=== PATIENT | female | born 1930 | race Caucasian/White ===

== ENCOUNTER 2016-04-23 21:26 | Emergency (ER) | payer MEDICARE ==
[2016-04-23] MEDS ORDERED: CloNIDine HCL 0.1 MG TABLET PO ONE (22:19)
[2016-04-23 23:04] LABS: eGFR (African) > 60; eGFR (Non-African) > 60
[2016-04-23 23:10] LABS: BASOPHILS % 0.5 (0.0-1.5); EOSINOPHILS % 3.2 % (0.0-6.8); LYMPHOCYTES # 1.2 # k/uL (0.6-4.0); MEAN CORPUSCULAR HEMOGLOBIN 29.6 pg (28.0-34.0); MONOCYTES # 0.3 # k/uL (0.0-0.9); MONOCYTES % 7.9 % (0.0-11.0); NEUTROPHILS # 2.2 # k/uL (1.4-7.7)
[2016-04-24] MEDS ORDERED: CLOPIDOGREL BISULFATE 75 MG TABLET PO ONE ×3 (00:24→00:31)
[2016-04-24] MEDS ORDERED: CloNIDine HCL 0.1 MG TABLET PO ONE ×2 (00:30→00:31)
--- NOTE | 2016-04-24 00:34 | ED Physician Documentation ---
Altered Mental Status - HISTORIAN Historian: patient - HPI Stated Complaint: Inability to get words out while on phone with family at 20: 30 tonight Chief Complaint: Altered Mental Status Onset: hours (1) Duration: sudden onset, other (lasted briefly and was over) Last known Well Date: 04/23/16 Last Known Well Time: 21:30 Last known Well Code/Unknown Code: Unknown Character of Altered Mental Status: other (expressive aphasia) Context: other (talking on phone) Cognition is Usually: alert, oriented x3 Gait is Usually: walks w/o assistance Associated Symptoms: none Further Comments: no - ROS EYES/ENT: none. denies: problems with vision, sore throat, trouble swallowing CVS/RESP: none. denies: chest pain, shortness of breath, palpitations, cough GI/: none. denies: abdominal pain, problems urinating, vomiting, nausea, diarrhea, black stools MS/SKIN/LYMPH: none. denies: joint pain, leg swelling, rash, swollen glands, recent injury, ankle swelling NEURO/PSYCH: none. denies: headache, anxiety, depression - PAST HX Past History: TIA Other History: hypertension Surgeries/Procedures: none Immunizations: referred to PCP Allergies/Adverse Reactions: Allergies Allergy/AdvReac Type Severity Reaction Status Date / Time codeine Allergy Verified 04/23/16 21:56 - SOCIAL HX Smoking History: non-smoker Alcohol Use: none Drug Use: none - FAMILY HX Family History: no significant history - VITAL SIGNS Vital Signs: Vital Signs Temp Pulse Resp BP Pulse Ox 97.3 F L 58 L 16 216/82 96 04/23/16 21:26 04/23/16 23:35 04/23/16 21:26 04/23/16 21:26 04/23/16 23:35 - REVIEWED ASSESSMENTS Nursing Assessment Reviewed: Yes Vitals Reviewed: Yes Progress - Results/Orders Results/Orders: ua, trop, pt/ptt/inr, d-dimer, cmp, cbc, ekg, ct head, cxr ordered - Progress Progress: plavix 75 mg p.o. and clonidine 0.1 mg p.o. given in er. Pt's bp down from 216/ 86 to 156/60 Critical Care Note - Critical Care Note Total Time (mins): 0 ED Results Lab/Radiology - Lab Results Lab Results: Lab Results 01/04/23/16 04/23/16 22:40 22:40 22:40 WBC RBC Hgb Hct MCV MCH MCHC RDW Plt Count Neut % (Auto) Lymph % (Auto) Gaston % (Auto) Eos % (Auto) Baso % (Auto) Neut # Lymph # Gaston # Eos # Baso # Reactive Lymphs % Reactive Lymphs # PT 11.5 Seconds Seconds (9.7-11.5) INR 1.1 (0.9-1.1) APTT 25.0 Seconds Seconds (24.5-32.8) D-Dimer 1268 ng/mL H ng/mL (0-682) Sodium 139 mmol/L mmol/L (136-145) Potassium 4.0 mmol/L mmol/L (3.5-5.0) Chloride 108 mmol/L mmol/L (98-110) Carbon Dioxide 32 mmol/L mmol/L (20-32) BUN 21 mg/dL mg/dL (10-26) Creatinine 1.1 mg/dL mg/dL (0.4-1.5) Estimated Creat Clear 40 Est GFR ( Amer) > 60 (60 - ) Est GFR (Non-Af Amer) > 60 (60 - ) Glucose 96 mg/dL mg/dL (70-99) Calcium 9.9 mg/dL mg/dL (8.5-10.5) Total Bilirubin 0.3 mg/dL mg/dL (0.2-1.2) AST 28 U/L U/L (0-41) ALT 17 U/L U/L (0-45) Alkaline Phosphatase 89 U/L U/L (46-116) Troponin I 0.00 ng/mL ng/mL (0.00-0.06) Total Protein 8.0 g/dL g/dL (6.0-8.5) Albumin 4.8 g/dL g/dL (3.0-5.5) 04/23/16 22:40 WBC 4.00 K/ul K/ul (4.00-12.00) RBC 4.26 M/ul M/ul (3.90-5.20) Hgb 12.6 g/dL g/dL (12.0-16.0) Hct 39.5 % % (34.5-46.5) MCV 92.7 fl fl (80.0-100.0) MCH 29.6 pg pg (28.0-34.0) MCHC 31.9 g/dL g/dL (30.0-36.0) RDW 13.8 % % (11.3-14.3) Plt Count 267 K/mm3 K/mm3 (130-400) Neut % (Auto) 56.3 % % (39.0-79.0) Lymph % (Auto) 28.9 % % (16.0-50.0) Gaston % (Auto) 7.9 % % (0.0-11.0) Eos % (Auto) 3.2 % % (0.0-6.8) Baso % (Auto) 0.5 (0.0-1.5) Neut # 2.2 # k/uL # k/uL (1.4-7.7) Lymph # 1.2 # k/uL # k/uL (0.6-4.0) Gaston # 0.3 # k/uL # k/uL (0.0-0.9) Eos # 0.1 # k/uL # k/uL (0.0-0.6) Baso # 0.0 # k/uL # k/uL (0.0-0.5) Reactive Lymphs % 3.2 % % (0.0-5.0) Reactive Lymphs # 0.1 # k/uL # k/uL (0.0-0.8) PT INR APTT D-Dimer Sodium Potassium Chloride Carbon Dioxide BUN Creatinine Estimated Creat Clear Est GFR ( Amer) Est GFR (Non-Af Amer) Glucose Calcium Total Bilirubin AST ALT Alkaline Phosphatase Troponin I Total Protein Albumin - Radiology Radiology Impressions: ct head neg fo abnormality, cxr neg for lung abnormality - Orders Orders: ED Orders Category Date Time Status Continuous EKG monitoring Q1H Care 04/23/16 22:35 Active Continuous Pulse Oximetry Q1H Care 04/23/16 22:35 Active CHEST 1 VIEW [RAD] Routine Exams 04/23/[address] BRAIN W/O CONTRAST Stat Exams 04/23/16 Taken CBC/PLATELET/DIFF Routine Lab 04/23/16 22:40 Completed CMP Routine Lab 04/23/16 22:40 Completed D DIMER Routine Lab 04/23/16 22:40 Completed PT-INR Routine Lab 04/23/16 22:40 Completed PTT Routine Lab 04/23/16 22:40 Completed TROPONIN I (cTnI) Routine Lab 04/23/16 22:40 Completed URINALYSIS Routine Lab 04/23/16 Ordered CloNIDine HCL [Catapress] Med 04/23/16 22:19 Discontinued 0.1 mg PO NOW ONE CloNIDine HCL [Catapress] Med 04/24/16 00:30 Once 0.1 mg PO NOW ONE CloNIDine HCL [Catapress] Med 04/24/16 00:31 Once 0.1 mg PO NOW ONE Clopidogrel Bisulfate [Plavix] Med 04/24/16 00:24 Discontinued 75 mg PO NOW ONE Clopidogrel Bisulfate [Plavix] Med 04/24/16 00:30 Once 75 mg PO NOW ONE Clopidogrel Bisulfate [Plavix] Med 04/24/16 00:31 Once 75 mg PO NOW ONE EKG WITH COMPARISON Routine Ther 04/23/16 Ordered Altered Mental Status Physical - Physical Exam General Appearance: no acute distress, alert Neuro/Psych: none alert, oriented x3, no evidence of acute CVA, mood/affect nml nml as tested Cerebellar Exam: nml as tested Peripheral Exam: motor nml, sensation nml, reflexes nml HEENT: JADIEL, EOM's intact, no apparent trauma, ENT inspection nml, oropharynx nml, airway intact Neck: normal inspection, thyroid normal, supple Respiratory: no resp distress, chest non-tender, breath sounds normal CVS: reg rate & rhythm, heart sounds normal, equal pulses, no murmur, no gallop , PMI nml, no JVD Abdomen: non-tender, no organomegaly, nml bowel sounds, no distention Skin: warm/dry, normal color Extremities: non-tender, normal range of motion, no evidence of injury, no edema Discharge Clincal Impression: Transient ischemic attack (TIA) Qualifiers: Transient cerebral ischemia type: unspecified Qualified Code(s): G45.9 - Transient cerebral ischemic attack, unspecified Comments: Discharged with scripts for Plavix 75 mg daily and Clonidine 0.1 mg daily Condition: Stable Disposition: 01 HOME, SELF-CARE Decision to Admit: NO Decision Time: 00:30
--- NOTE | 2016-04-24 00:36 | Diagnostic Imaging Report ---
[facility] [address] [facility] [address] [place], [place]. [address] ~ ~ ~ ~ Report Submission Date: Apr 23, 2016 10:40:03 PM APPLICATION DEVELOPMENT SPECIALIST Patient ~ Study Name: VEE RICE ~ Date: Apr 23, 2016 10:28:14 PM APPLICATION DEVELOPMENT SPECIALIST ~ Modality Type: CR Gender: F ~ Description: CHEST : [birth year] ~ Institution: [facility] Physician: LISSETH ALAS ~ ~ ~ ~ Chest AP upright portable at 2228 hours of April 23, 2016 Clinical history: TIA and dyspnea Mild cardiomegaly with atherosclerotic thoracic aorta. Prominent main pulmonary arteries suggesting of possible pulmonary hypertension. No acute infiltrates or pleural effusion . normal bony thorax. Impression: Mild cardiomegaly with atherosclerotic thoracic aorta Questionable pulmonary hypertension No acute infiltrates or pleural effusion ~ Electronically signed on Apr 23, 2016 10:40:03 PM APPLICATION DEVELOPMENT SPECIALIST by: Zion HARRIS
--- NOTE | 2016-04-24 00:37 | Diagnostic Imaging Report ---
[facility] [address] [facility] [place] [address]. [id number] ~ ~ ~ ~ Report Submission Date: Apr 23, 2016 11:28:36 PM ELASTIC ATTACHER ZIGZAG Patient ~ Study Name: VEE RICE ~ Date: Apr 23, 2016 10:55:47 PM ELASTIC ATTACHER ZIGZAG ~ Modality Type: CT\SR Gender: F ~ Description: CT BRAIN W/O CONTRAST : [birth year] ~ Institution: [facility] Physician: LISSETH ALAS ~ ~ ~ ~ Head CT without contrast Clinical history: ~Transient ischemic attack. Technique: ~CT examination of the brain is performed in contiguous axial slices without the use of contrast. ~Sagittal and coronal reconstructions are performed by the technologist. Findings: ~The fourth ventricle lies in a normal midline position. ~The ventricles and sulci are prominent secondary to atrophy. ~Chronic ischemic changes are present in the periventricular regions. ~There is no hypodense or hyperdense mass or intracranial hemorrhage. ~The left sphenoid sinus is nearly completely opacified with a large retention cyst. ~Paranasal sinuses are otherwise clear. Impression: 1. ~Atrophy and chronic small vessel ischemic changes. 2. ~Partial opacification of left sphenoid sinus. 3. ~No acute intracranial changes. ~ Electronically signed on Apr 23, 2016 11:28:36 PM ELASTIC ATTACHER ZIGZAG by: Femi HARRIS
[2016-04-24 00:54] VITALS: BP 162/58
[2016-04-24 05:51] LABS: APPEARANCE,URINE CLEAR (CLEAR); COLOR,URINE YELLOW (YELLOW); OCCULT BLOOD,URINE NEGATIVE (NEGATIVE); PH URINE 6.5 (5.0 - 8.0); UROBILINOGEN URINE 0.2 Eu (0.2-1.0)
== END 2016-04-24 00:30 | disposition home or self-care (01) ==
LOC: ED 21:26
DX: G45.9 Transient cerebral ischemic attack, unspecified (principal)
CPT/HCPCS: 70450; 71010; 80053; 81002; 84484; 85025; 85379; 85610; 85730; 99283

== ENCOUNTER 2016-04-29 14:39 | Outpatient (CLI) | payer MEDICARE ==
[2016-04-29 14:58] LABS: BASOPHILS % 0.5 (0.0-1.5); EOSINOPHILS % 2.3 % (0.0-6.8); LYMPHOCYTES # 1.3 # k/uL (0.6-4.0); MEAN CORPUSCULAR HEMOGLOBIN 29.4 pg (28.0-34.0); MONOCYTES # 0.4 # k/uL (0.0-0.9)
[2016-04-29 15:24] LABS: eGFR (African) > 60; eGFR (Non-African) > 60
--- NOTE | 2016-04-30 06:15 | Diagnostic Imaging Report ---
Report Submission Date: Apr 29, 2016 11:56:21 PM ANALYTICAL LAB ANALYST Patient ~ Study Name: VEE RICE ~ Date: Apr 29, 2016 3:00:09 PM ANALYTICAL LAB ANALYST ~ Modality Type: US Gender: F ~ Description: DPLX SCN XTRCRAN ART CMP SHADI : [birth year] ~ Institution: [facility] [place] [facility] Physician: OMARI CERON ~ ~ ~ ~ Carotid ultrasound Clinical history: ~Difficulty speaking. ~Hypertension. Technique: ~Real time sonography of the carotid and vertebral arteries is performed in transverse and longitudinal views. ~Doppler interrogation and color flow imaging are additionally used. Findings: ~There is echogenic plaque in the region of the common carotid artery and carotid bulb bilaterally. ~Spectral broadening is seen in the left internal carotid waveform. ~The internal carotid peak velocities measure 162 cm/sec on the right and 221 cm/sec on the left with an internal carotid to common carotid artery ratio of 2.6 on the right and 3.6 on the left. ~The vertebral arteries demonstrate normal cephalad flow. ~External carotid peak velocities measure 80 cm/sec on the right and 68 cm/sec on the left. Impression: 1. ~Bilateral 50-69% internal carotid stenosis. The degree of carotid stenosis is estimated using the Society of Radiologists in Ultrasound consensus conference of 2003 criteria. ~ Electronically signed on Apr 29, 2016 11:56:21 PM ANALYTICAL LAB ANALYST by: Femi HARRIS
== END 2016-04-29 14:40 ==
LOC: RAD 14:39
PROVIDERS: ATTEND Internal Medicine
DX: I65.23 Occlusion and stenosis of bilateral carotid arteries (principal)
CPT/HCPCS: 36415; 80053; 85025; 93880

== ENCOUNTER 2016-11-03 13:18 | Outpatient (CLI) | payer MEDICARE | END 2016-11-03 13:20 | LOC: LAB 13:18 | PROVIDERS: ATTEND Internal Medicine Pulmonary Disease | DX: R05 Cough (principal) | CPT/HCPCS: 87116; 87206 ==

== ENCOUNTER 2017-01-06 09:32 | Outpatient (CLI) | payer MEDICARE ==
--- NOTE | 2017-01-06 11:13 | Diagnostic Imaging Report ---
RILEY MCCRARY~ [facility] [address] [facility] [address] [place], [place]. [address] ~ ~ ~ ~ Report Submission Date: Jan 06, 2017 10:54:14 AM CDT Patient ~ Study Name: VEE RICE ~ Date: Jan 06, 2017 10:02:48 AM CDT ~ Modality Type: CT\SR Gender: F ~ Description: CT CHEST W & W/O CONTR : [birth year] ~ Institution: [facility] Physician: RILEY MCCRARY ~ ~ ~ ~ Examination: CT chest History: Pulmonary mycobacterium avium complex Comparison exams: None available for direct review Technique: CT chest without and with contrast protocol~~ Findings: Lungs demonstrate scattered parenchymal interstitial infiltrates bilaterally. Scattered pulmonary nodular densities involving lung downey bilaterally: argest appears to be involving the right hemithorax measuring 8 mm - image 27 of 65. Bronchiectasis with subsegmental lobar involvement of the left lung lingula. No posterior pleural effusion. Anterior mediastinum and yesenia do not demonstrate pathologic adenopathy or hilar mass. Thoracic aorta demonstrates peripheral atherosclerotic plaques associated with mural thickening. No aneurysm. ~ Cardiac silhouette not enlarged. No effusion. Lower neck structures, upper abdominal organs, and osseous structures are without gross abnormality. Impression: Scattered parenchymal interstitial infiltrates with lingular bronchiectasis/lobar collapse. Scattered presumed inflammatory nodules bilaterally. Correlation with any previous examinations highly recommended. By report, patient has a diagnosis of Pulmonary Mycobacterium Avium Complex. Followup as clinically warranted. ~ Electronically signed on Jan 06, 2017 10:54:14 AM CDT by: Giancarlo HARRIS
== END 2017-01-06 09:33 ==
LOC: RAD 09:32
PROVIDERS: ATTEND Student in an Organized Health Care Education/Training Program
DX: A31.0 Pulmonary mycobacterial infection (principal)
CPT/HCPCS: 71270; Q9966

== ENCOUNTER 2017-02-04 12:57 | Outpatient (CLI) | payer MEDICARE ==
--- NOTE | 2017-02-10 15:54 | CONSULTATION REPORT ---
PRIMARY CARE PHYSICIAN: Dr. Vargas and saw Dr. Ramsay here for 1 visit on 01-21-17. CONSULTING PHYSICIAN: Dee Sutherland MD REASON FOR CONSULT: Patient thinks she has a recurrent Mycobacterium avium-intracellulare infection and would like treatment. SIGNIFICANT PROBLEM LIST: 1. Mycobacterium avium-intracellulare complex infection diagnosed in 2011 and treated with clarithromycin/ethambutol/rifampin for 18 months. 2. Hypertension. 3. Carotid stenosis. 4. Transient ischemic attack (TIA): On Plavix. 5. Glaucoma. 6. Total abdominal hysterectomy. HISTORY OF PRESENT ILLNESS: This is an 86-year-old female accompanied by her daughter. Patient also brought a manilla envelope with old records approximately 1 inch thick. Patient states that she has had a MAC infection in the past and was treated; however, she feels that the infection is back. The reason she feels that way is she has a significant cough with some sputum production and some shortness of breath. She feels fatigued and also complains of headaches. She denies fever, chills, or sweats. She says because of her cough, she has slept in a reclining chair for approximately the last 2 years. Per patient and daughter, patient has been followed at [facility] for the last 4 to 5 years both in the Pulmonary Department and also recently the Infectious Disease Department. Patient is expressing frustration with the current care at [facility]. In her opinion, the appropriate therapy has not been started and she is being made to go between the Pulmonary and Infectious Disease physicians with no decision regarding therapy at the present time. I stressed that it would probably be in her best interest since then can be a very complicated condition to continue at [facility] with the physicians that know her; however, she and her daughter were very adamant that they want to transfer care to [facility]. Patient was seen on January 21, 2017, by Dr. Harshad Ramsay here. He diagnosed her with a community-acquired pneumonia and started her on cefuroxime and azithromycin. She does not feel that has helped her, although she is taking Robitussin for her cough and feels that has helped her somewhat. Regarding this chronic cough, she is unable to take codeine due to a skin rash but, as mentioned above, she states that the Robitussin has helped her somewhat. Patient is confident that in these old records that she has brought me there is a recent sputum culture result showing that she has a continued MAC infection. She is a life-long nonsmoker. She does not complain of acid reflux. There is no postnasal drip. No hemoptysis. No chest pain. No edema. MEDICATIONS: 1. Carvedilol 25 mg b.i.d. 2. Losartan/HCTZ 50/12.5 mg daily. 3. Clopidogrel 75 mg daily. 4. Aspirin 325 mg daily. 5. Montelukast 10 mg daily. 6. Estropipate 0.75 mg daily. ALLERGIES: Codeine: Skin rash. SOCIAL HISTORY: She lives alone. Life-long nonsmoker. Daughter accompanied the patient to the clinic and is involved in her care. FAMILY HISTORY: Mother with cancer and lung disease. Father unknown. REVIEW OF SYSTEMS: For pertinent review of systems, please see HPI. Please also refer to the [facility] intake form. PHYSICAL EXAMINATION: VITAL SIGNS: GENERAL: This is a well-developed thin female in no acute distress speaking in full sentences. VITAL SIGNS: Height: 5 feet 3 inches. Weight: 139 pounds. BP: 196/71, P: 62, R: 20, T: 97.5, oxygen saturation is 97% on room air. HEENT: Pupils are equal and reactive. Oropharynx is clear. No thrush. No erythema. NECK: Supple. No adenopathy. Trachea midline. LUNGS: Normal chest expansion. Normal respiratory effort. Lungs clear to auscultation. No wheezing or crackles. CARDIAC: Rate and rhythm are regular. No murmur, rubs, or gallops. ABDOMEN: Soft and nontender. Positive bowel sounds. No masses. EXTREMITIES: No clubbing, cyanosis, or edema. NEUROLOGIC: Alert and oriented x3. Normal gait for her age. Grossly nonfocal. IMAGING: All imaging was reviewed by me personally. Chest CT scan on 01-06-17: Significant bilateral bronchiectasis predominantly in the upper lobes. Multiple small infiltrates in left lower lobe. ASSESSMENT AND PLAN: PROBLEM #1: History of Mycobacterium avium-intracellulare (CINTHYA) with possible recurrence. I told the patient that CINTHYA disease is complicated and can be difficult to treat and eradicate and that I need to review the packet of old records prior to making any recommendations. Both her and her daughter understood and are in agreement. PLAN: Review packet of old records that the patient provided. PROBLEM #2: Cough. Per her history, most likely related to a recurrent CINTHYA infection. Does not seem to have responded to therapy for community- acquired pneumonia. I also reviewed her codeine allergy because codeine is a very effective antitussive, but she clearly states that when she has taken codeine in the past, she got a significant skin rash. PLAN: At present, she is happy using Robitussin. PROBLEM #3: Hypertension. The patient does have significant systolic hypertension at this visit, however, this is only 1 reading. She is being treated for her hypertension and per her, her hypertension is generally under control. PLAN: Monitor blood pressures on subsequent visits. PROBLEM #4: Pulmonary preventative disease. Patient has had a Pneumonia shot in 2015 and she has had a flu vaccine in January of 2017. PLAN: Patient will return in 1 week and I will be able to review her records and come up with a treatment plan. cc: Dr. Harshad HARRIS
== END 2017-02-04 13:00 ==
LOC: PULMONARY 12:57
PROVIDERS: ATTEND Internal Medicine Pulmonary Disease
DX: R05 Cough (principal); I10 Essential (primary) hypertension
CPT/HCPCS: 99213; G0463

== ENCOUNTER 2017-02-11 10:31 | Outpatient (CLI) | payer MEDICARE ==
--- NOTE | 2017-02-16 13:43 | OP Clinic Progress Note ---
REFERRING PHYSICIAN: Dr. Harshad Ramsay PRIMARY CARE PHYSICIAN: Dr. Jake Vargas CHIEF COMPLAINT: Patient and her daughter return after a week to discuss the plan for her Mycobacterium avium-intracellulare infection. SIGNIFICANT PROBLEM LIST: 1. Mycobacterium avium-intracellulare complex infection diagnosed in 2011 treated with clarithromycin/ethambutol/rifampin for 16 to 18 months; recurrent positive CINTHYA cultures in April 2014 and October 2016: No further medical therapy. 2. Hypertension. 3. Carotid stenosis. 4. Transient ischemic attack (TIA): On Plavix. 5. Glaucoma. 6. Total abdominal hysterectomy. HISTORY OF PRESENT ILLNESS: Patient returns for follow up with her daughter. She is complaining of some sputum production, a cough, which has not changed, and fatigue, which has not changed. Her weight is stable. Her appetite is good. There are no fevers/ chills/sweats. I have extensively reviewed all of the old records that she handed me from [facility], and I have also retrieved additional results from the appropriate laboratories. SUMMARY THE FOLLOWING: Symptoms first started December 07, 2011. She underwent bronchoscopy at [facility] and the specimen from 12-15-11 grew CINTHYA. Susceptibility to clarithromycin. Patient started medical therapy in May 2012 and was treated for approximately 16 to 18 months (it is slightly unclear) but seems to have finished therapy in September of 2013. Her therapy at that time consisted of clarithromycin 500 mg 3 times per day, ethambutol 22.5 mg per kilogram 3 times a week, and rifampin 600 mg once daily. Patient states she had no side effects or complications and at the end of her therapy, AFB follow up sputum cultures were not able to be done because she did not have any sputum. She had done well from September 2013 until approximately April of 2014. She started having some cough and symptoms of fatigue. She submitted another specimen which subsequently grew Mycobacterium avium-intracellulare complex and she was referred to the Infectious Disease (ID) Department at [facility] on May 24, 2014. Per patient and daughter, they saw 2 separate ID physicians, however, no therapy was instituted. According to the records, patient saw her pulmonary physician at [facility] on September 12, 2014, and on March 19, 2015, however, she was not treated for her MAC infection. In March of 2015, she was treated because of a cough with levofloxacin and the pulmonary note read that if she got worse, patient would be referred to infectious disease doctor in [place]. Patient was feeling adequate until May 2016, when she noted that her cough had returned. She once again saw Pulmonary at [facility] and a specimen was submitted and on November 02, 2016, the culture became positive for CINTHYA complex. Patient did not undergo any therapy. I have reviewed also all of her sputum AFB cultures in October 2016. She submitted 3 sputums for AFB smear and culture. All 3 had a positive culture with the first one being sent on for sensitivities. The cultures all grew avium -intracellulare complex. Patient states that she wants to transfer her care to [facility] and has felt slightly frustrated being asked to see multiple different physicians for her CINTHYA disease. MEDICATIONS: 1. Carvedilol 25 mg b.i.d. 2. Losartan/hydrochlorothiazide 50/12.5 mg daily. 3. Clopidogrel 75 mg daily. 4. Aspirin 325 mg daily. 5. Montelukast 10 mg daily. 6. Estropipate 0.75 mg daily. ALLERGIES: Codeine: Skin rash. PHYSICAL EXAMINATION: GENERAL: This is a well-developed, well-nourished thin female in no acute distress speaking in full sentences. VITAL SIGNS: Weight: 138 pounds (stable from last visit). BP: 142/68, P: 54, R: 20, oxygen saturation of 99% on room air, T: 97.1. HEENT: Oropharynx is clear. No thrush. NECK: Supple. Trachea midline. LUNGS: Normal chest expansion. Normal respiratory effort. Clear to auscultation. CARDIAC: Rate and rhythm are regular. No murmur, rubs, or gallops. ABDOMEN: Soft and nontender. No masses. EXTREMITIES: No clubbing, cyanosis, or edema. NEUROLOGIC: Alert and oriented x3. Normal gait for age. Grossly nonfocal. ASSESSMENT AND PLAN: PROBLEM #1: Confirmed Mycobacterium avium-intracellulare complex infection. In reviewing the records, patient developed her initial infection in 2011 and underwent appropriate therapy without any side effects. Subsequently, developed positive cultures in April 2014 and in October 2016 without subsequent therapy. Patient asked me during our discussion if she would from her Mycobacterium avium-intracellulare complex disease. Obviously a very difficult question to answer; however, patient does not have any constitutional signs of infection, meaning no weight loss, good appetite, no fever, chills, or sweats; however, I explained to her and her daughter that she clearly has an infection. I also explained to them most likely the reticence of previous physicians to treat her is because of her age. She is 86 and will be 87 in 1 month and she looks remarkably terrific. I did review the side effects of the different medicines and answered their questions. PLAN: 1. Obtain repeat sputum for AFB smear and culture. 2. Obtain sputum, Gram stain, and culture: She may have bacterial super infection. 3. Labs to draw: Comprehensive metabolic panel, including liver function testing, CBC, and CRP. 4. We will obtain chest CT scans from [facility] on a CD to compare to her most recent chest CT done at [facility]. 5. Both patient and daughter are in agreement that we will do the above mentioned plan and discuss the possibility of initiating therapy on the next visit. PROBLEM #2: Cough. Again, I questioned the patient on how much the cough is bothering her. She says that actually it is tolerable and, again, maintains that she is doing adequate with her Robitussin. PLAN: Continue Robitussin for her cough. PROBLEM #3: Hypertension. This does not seem to be an issue. On this visit , blood pressure was reasonable. PLAN: 1. Monitor blood pressure on subsequent visits. 2. Patient will return in 1 month to discuss the above ordered tests. cc: Dr. Harshad HARRIS
== END 2017-02-11 10:33 ==
LOC: PULMONARY 10:31
PROVIDERS: ATTEND Internal Medicine Pulmonary Disease
DX: A31.0 Pulmonary mycobacterial infection (principal); R05 Cough; I10 Essential (primary) hypertension
CPT/HCPCS: 99214; G0463

== ENCOUNTER 2017-02-15 09:02 | Outpatient (CLI) | payer MEDICARE ==
[2017-02-15 09:38] LABS: BASOPHILS % 1.5 (0.0-1.5); EOSINOPHILS % 1.8 % (0.0-6.8); MEAN CORPUSCULAR VOLUME 92.5 fl (80.0-100.0); MONOCYTES % 6.7 % (0.0-11.0); NEUTROPHILS # 3.4 # k/uL (1.4-7.7)
[2017-02-15 09:55] LABS: eGFR (African) > 60; eGFR (Non-African) > 60
== END 2017-02-15 09:04 ==
LOC: LAB 09:02
PROVIDERS: ATTEND Internal Medicine Pulmonary Disease
DX: A31.0 Pulmonary mycobacterial infection (principal); I10 Essential (primary) hypertension
CPT/HCPCS: 36415; 80053; 85025; 86140; 87070; 87116; 87186; 87206

== ENCOUNTER 2017-03-18 10:29 | Outpatient (CLI) | payer MEDICARE ==
--- NOTE | 2017-03-24 14:29 | OP Clinic Progress Note ---
PRIMARY CARE PHYSICIANS: Dr. Harshad Vargas CHIEF COMPLAINT: Patient and daughter return after 1 week to assess cough and patient's laboratory results. SIGNIFICANT PROBLEM LIST: 1. Mycobacterium avium-intracellulare complex infection diagnosed in 2011 and treated with clarithromycin/ethambutol/rifampin for 16 to 18 months; recurrent positive CINTHYA cultures in April 2014 and October 2016. No further medical therapy. 2. Hypertension. 3. Carotid stenosis. 4. Transient ischemic attack (TIA): On Plavix. 5. Glaucoma. 6. Total abdominal hysterectomy. HISTORY OF PRESENT ILLNESS: Patient returns with her daughter for follow up. Actually, her main complaint is that she has had several falls that she describes as when she arises from a lying to a sitting to a standing position or sitting to a standing position. She has not hurt herself with the falls. She did go see Dr. Vargas in [place] who, per the patient, did not draw any laboratories and suggested that the patient should no longer drive. The patient does state that her cough may be a little bit worse at times. There was some streaky hemoptysis that occurred last week and now it is gone. Other than that, there are no new complaints. Her weight remains steady. Her energy level is low but steady. Her appetite is good. The daughter asked me a question on behalf of her brother who is a microbiologist and his question was about the role of INH in the treatment of CINTHYA. I responded that INH is cornerstone therapy if you have mycobacterium tuberculosis but not if you have mycobacterium avium-intracellulare. MEDICATIONS: 1. Carvedilol 25 mg b.i.d. 2. Losartan/HCTZ 50/12.5 mg daily. 3. Clopidogrel 75 mg daily. 4. Aspirin 325 mg daily. 5. Montelukast 10 mg daily. 6. Estropipate 0.75 mg daily. ALLERGIES: Codeine: Skin rash. PHYSICAL EXAMINATION: GENERAL: This is a well-developed, well-nourished thin female in no acute distress speaking in full sentences. VITAL SIGNS: BP: 139/53, P: 54, R: 20, T: 97.8. Room air oxygen saturation was 99%. HEENT: Oropharynx is clear. No thrush. NECK: Supple. Trachea is midline. LUNGS: Normal chest expansion. Normal respiratory effort. Clear to auscultation. CARDIAC: Rate and rhythm are regular. No murmur, rubs, or gallops. ABDOMEN: Soft and nontender. EXTREMITIES: No clubbing, cyanosis, or edema. NEUROLOGIC: Alert and oriented x3. Normal gait for age. Grossly nonfocal. LABORATORIES: February 15, 2017: White blood cell count 5, hemoglobin 11.6, hematocrit 34.7, platelets 316,000. Chemistries: Sodium 130, potassium 4.2, chloride 94, carbon dioxide 27, BUN 26, creatinine 1.2, glucose 83, calcium 9.3, total bilirubin 0.3, AST 23, ALT 20, alkaline phosphatase 80, total protein 6.9, albumin 3.7, C-reactive protein 0.48. Sputum AFB smear and culture on February 15, 2017: AFB smear is negative. Culture positive for mycobacterium avium-intracellulare complex. No sensitivities were performed. Sputum Gram stain and culture on February 15, 2017: Moderate gram-negative rods. Growth of 2 different Pseudomonas aeruginosa both pansensitive to the antibiotics tested including ciprofloxacin. ASSESSMENT AND PLAN: PROBLEM #1. Cough. This is multi-factorial causes including mycobacterium avium-intracellulare (CINTHYA ) infection versus colonization, Pseudomonas aeruginosa infection, and possibly the contribution of Losartan as an antihypertensive. PLAN: 1. Continue Robitussin DM. 2. Patient has reconfirmed Codeine allergy. The other alternative would be cough syrup with hydromorphone which, at present, I think is not necessary. PROBLEM #2: Mycobacterium avium-intracellulare (CINTHYA) infection versus colonization. At present, I am leaning towards colonization because the patient has, aside from a cough, her appetite is good, her weight is good, and her CRP is low, which is a marker for inflammation, and I counseled both the patient and daughter that I think it is appropriate just to monitor the situation again because of her age of 87, the potential toxicity of the 3 mycobacterium, drugs, and the lengthy duration of treatment. They are in agreement with this. PLAN: Repeat sputum AFB and sending it for sensitivities so that if the decision is made to treat in the future, I have current sensitivities. PROBLEM #3: Pseudomonas pneumonia. Pseudomonas infection can clearly be contributing to her cough. Therefore, we will initiate antibacterial treatment for this. PLAN: Ciprofloxacin 250 mg p.o. b.i.d. for 7 days. Please note the patient's Cockcroft creatinine clearance is 33. Therefore, the ciprofloxacin dose is lowered accordingly. PROBLEM #4: Losartan as a possibility of contributing to her cough. Her daughter was questioning this and asking if her antihypertensive could be changed and obviously, the answer is yes. PLAN: I will defer this to Dr. Harshad Ramsay who they have decided will be the current PCP. PROBLEM #5: Falls. Per history, these falls are consistent with orthostatic changes. This is also supported by her low sodium and increased BUN and creatinine. I feel that she is on the dehydrated side and that the hydrochlorothiazide is likely contributing to this. My recommendation to her and her daughter would be to stop the hydrochlorothiazide and repeat labs and assess her clinically. PLAN: Refer to Dr. Harshad Ramsay who will be her new primary care physician to make the change and stop the hydrochlorothiazide and follow up on her laboratory values. PROBLEM #6: Patient changes primary care physician. She has chosen to use Dr. Harshad Ramsay since her current primary care physician, Dr. Vargas in [place], is recommending that she does not drive. PLAN: Patient will make an appointment with Dr. Ramsay. cc: Dr. Harshad HARRIS
== END 2017-03-18 10:30 ==
LOC: PULMONARY 10:29
PROVIDERS: ATTEND Internal Medicine Pulmonary Disease
DX: R05 Cough (principal); J15.1 Pneumonia due to Pseudomonas; R29.6 Repeated falls
CPT/HCPCS: 87070; 87116; 87206; 99214; G0463

== ENCOUNTER 2017-04-22 10:03 | Outpatient (CLI) | payer MEDICARE ==
--- NOTE | 2017-04-22 10:54 | Diagnostic Imaging Report ---
FIDEL SHOEMAKER [facility] [id number] [facility] [address] [place], [place]. [address] Report Submission Date: Apr 22, 2017 10:54:02 AM COTTON WRINGER Patient Study Name: VEE RICE Date: Apr 22, 2017 10:27:26 AM COTTON WRINGER Modality Type: CR Gender: F Description: CHEST : [birth year] Institution: [facility] Physician: FIDEL SHOEMAKER PA and lateral chest Clinical history: CXR, COUGH, DYSPNEA ON EXERTION SINCE MARCH 2017 Findings: Examination of the chest in PA and lateral views demonstrate the lungs to be hyperinflated with increased AP diameter of the chest consistent with emphysema. There are bilateral perihilar infiltrates and/or congestion. Mild prominence of the interstitial markings in the bases. There is an ill- defined nodular density in the left apex and additional one in the right mid lung zone. These are likely inflammatory, but followup to resolution is recommended. Small left effusion blunts the costophrenic angle. Cardiac silhouette is enlarged and aorta is atherosclerotic. Impression: 1. Bilateral perihilar infiltrates and/or congestion. 2. Cardiomegaly and aortic atherosclerosis. 3. Ill-defined nodules in the lungs. Recommend followup to resolution. Electronically signed on Apr 22, 2017 10:54:02 AM COTTON WRINGER by: Femi HARRIS
[2017-04-22 12:02] LABS: BASOPHILS % 0.9 (0.0-1.5); EOSINOPHILS % 0.8 % (0.0-6.8); MEAN CORPUSCULAR HEMOGLOBIN 29.7 pg (28.0-34.0); MEAN CORPUSCULAR VOLUME 98.2 fl (80.0-100.0); MONOCYTES % 6.8 % (0.0-11.0); NEUTROPHILS # 4.3 # k/uL (1.4-7.7)
[2017-04-22 12:14] LABS: eGFR (African) > 60; eGFR (Non-African) > 60
== END 2017-04-22 10:04 ==
LOC: RT 10:03 → LAB 10:04
PROVIDERS: ATTEND Family Medicine
DX: J18.9 Pneumonia, unspecified organism (principal); E87.1 Hypo-osmolality and hyponatremia; N28.9 Disorder of kidney and ureter, unspecified
CPT/HCPCS: 36415; 71020; 80053; 85025

== ENCOUNTER 2017-04-27 13:39 | Outpatient (CLI) | payer MEDICARE ==
--- NOTE | 2017-04-27 14:32 | Diagnostic Imaging Report ---
FIDEL SHOEMAKER [facility] [id number] [facility] [address] [place] [address]. [id number] Report Submission Date: Apr 27, 2017 2:19:25 PM [employer]OL HAT [employer]ANGER Patient Study Name: VEE RICE Date: Apr 27, 2017 2:00:01 PM [employer] H[employer]ANGER Modality Type: CR Gender: F Description: CHEST : [birth year] Institution: [facility] Physician: FIDEL SHOEMAKER Examination: PA and lateral chest. History: Evaluate lung downey. Comparison exam: April 2017 Findings: PA lateral chest demonstrate a prominent cardiac and mediastinal silhouette. Continued parenchymal haziness involving the perihilar regions and lung bases bilaterally - improved from the previous examination. No blunting of the costophrenic margins. Osseous structures are appropriate for age. Impression: Continued bilateral infiltrates though improved from the 22 April 2017 examination. Electronically signed on Apr 27, 2017 2:19:25 PM WOOL HAT [employer]ANGER by: Giancarlo HARRIS
== END 2017-04-27 13:40 ==
LOC: RT 13:39
PROVIDERS: ATTEND Family Medicine
DX: J18.9 Pneumonia, unspecified organism (principal); R06.09 Other forms of dyspnea; R07.2 Precordial pain
CPT/HCPCS: 36415; 71020; 84484

== ENCOUNTER 2017-05-06 10:36 | Outpatient (CLI) | payer MEDICARE ==
--- NOTE | 2017-05-12 11:26 | OP Clinic Progress Note ---
PRIMARY CARE PROVIDER: Dr. Harshad Ramsay CHIEF COMPLAINT: "I am still very tired and still have a cough." SIGNIFICANT PROBLEM LIST: 1. Mycobacterium avium intracellulare complex infection diagnosed in 2011. Treated with clarithromycin/ethambutol/rifampin for 16 to 18 months; recurrent positive CINTHYA cultures in April 2014 and October 2016. No further medical therapy. 2. Renal insufficiency. GFR via Cockcroft-Gault was 34 milliliters per minute. 3. Hypertension. 4. Carotid stenosis. 5. Transient ischemic attack: On Plavix. 6. Glaucoma. 7. Total abdominal hysterectomy. HISTORY OF PRESENT ILLNESS: Patient returns with her daughter for follow up. She still is complaining of significant fatigue and cough. The cough is about the same and is kept under somewhat control with Sera PERES. She has seen Dr. Ramsay on multiple visits since my last visit with her in March. Dr. Ramsay stopped her losartan and hydrochlorothiazide and placed her on metoprolol on April 22. He prescribed cefuroxime and azithromycin for community-acquired pneumonia and then saw Ms. Gauthier again on April 27 for dizziness and shortness of breath. Patient states that today she would like to receive treatment for her MAC infection. She states that she understands the risks and side effects that I have been explaining to her over the last several months. Both her and her daughter have had extensive discussions and the patient chooses to undergo therapy. The daughter is in agreement with this. MEDICATIONS: 1. Carvedilol 25 mg b.i.d. 2. Metoprolol 25 mg daily. 3. Clopidogrel 75 mg daily. 4. Aspirin 325 mg daily. 5. Montelukast 10 mg daily. 6. Estropipate 0.75 mg daily. ALLERGIES: Codeine: Skin rash. PHYSICAL EXAMINATION: Vital Signs: BP: 197/77, P: 54, R: 20, T: 96.9, oxygen saturation 96% on room air. Weight is stable at 138 pounds. General: This is a well-developed, well-nourished female in no acute distress speaking in full sentences. HEENT: Pupils are equal and reactive. Oropharynx is clear. LUNGS: Good bilateral air excursion. Bilateral crackles. No wheezes. CARDIAC: Rate and rhythm are regular. No murmur, rubs, or gallops. ABDOMEN: Positive bowel sounds. Soft. EXTREMITIES: No cyanosis, or clubbing, or edema. IMAGING: All imaging independently reviewed by me personally. 1. Chest x-ray on April 27, 2017: Peribronchial cuffing, right upper lobe atelectasis, bilateral lower lobe haziness. 2. EKG on April 27, 2017: Sinus willy, rate of 56. No acute changes. 3. Sputum AFB on March 21, 2017: Mycobacterium avium intracellulare complex. LABORATORIES: 1. CBC on April 22, 2017: Hemoglobin 11, hematocrit 3.6, white count 5.5 , platelets 378,000. 2. Chemistry: Sodium 139, potassium 4.7, chloride 101, bicarbonate 25, BUN 18, creatinine 1.1, glucose of 76. ASSESSMENT: PROBLEM #1: Mycobacterium avium intracellulare infection. Patient definitely stating today that she wants treatment. Her main complaint is fatigue and cough. She would like to see if her fatigue, which is what bothers her the most, would improve on therapy. I have submitted 2 sputums since the end of January on Ms. Gauthier and both of these sputums have been positive for CINTHYA. I have once again explained my concern using these antibiotics in someone with her age and her renal insufficiency. Both her and her daughter understand and would still like to proceed with the therapy. Due to the patient's age and her renal insufficiency, I have opted to treat her with a 0-[id number]-week regimen. I have also told the patient that she needs to come frequently for blood draws and also to see me in the clinic so that I can assess if there are any side effects. I also will write the prescription for only 1 month; therefore, the patient cannot keep taking medicine inadvertently if she indeed does have side effects she does not recognize. The antibiotics have all been dosed appropriately based on her renal insufficiency and calculated creatinine clearance. PLAN: 1. Ethambutol 1500 mg p.o. 3 times per week. 2. Rifampin 600 mg p.o. 3 times per week. 3. Azithromycin 500 mg p.o. 3 times per week. 4. Laboratories prior to next visit: CBC with platelets, chemistry with LFTs. 5. Return to clinic in 2 weeks. PROBLEM #2: Hyponatremia. PLAN: With the discontinuation of her hydrochlorothiazide, her hyponatremia has resolved. PROBLEM #3: Cough. PLAN: We will see whether her cough is made any better with the 3-drug therapy for CINTHYA. If the patient desires a stronger cough medicine besides Robitussin DM, I have done some research and spoken to a pharmacist and recommend her using hydrocodone cough syrup. cc: Dr. Harshad HARRIS
== END 2017-05-06 10:37 ==
LOC: PULMONARY 10:36
PROVIDERS: ATTEND Internal Medicine Pulmonary Disease
DX: A31.0 Pulmonary mycobacterial infection (principal); E87.1 Hypo-osmolality and hyponatremia; R05 Cough; R53.83 Other fatigue; I10 Essential (primary) hypertension; N28.9 Disorder of kidney and ureter, unspecified; I65.29 Occlusion and stenosis of unspecified carotid artery; G45.9 Transient cerebral ischemic attack, unspecified; H40.9 Unspecified glaucoma
CPT/HCPCS: 99214; G0463

== ENCOUNTER 2017-06-01 09:42 | Outpatient (CLI) | payer MEDICARE ==
[2017-06-01 10:03] LABS: BASOPHILS % 0.7 (0.0-1.5); EOSINOPHILS % 1.7 % (0.0-6.8); MEAN CORPUSCULAR HEMOGLOBIN 28.8 pg (28.0-34.0); NEUTROPHILS # 3.7 # k/uL (1.4-7.7)
[2017-06-01 10:37] LABS: eGFR (African) > 60; eGFR (Non-African) > 60
== END 2017-06-01 09:43 ==
LOC: LAB 09:42
PROVIDERS: ATTEND Internal Medicine Pulmonary Disease
DX: A31.8 Other mycobacterial infections (principal)
CPT/HCPCS: 36415; 80053; 82248; 85025

== ENCOUNTER 2017-06-17 11:39 | Outpatient (CLI) | payer MEDICARE ==
--- NOTE | 2017-06-28 09:17 | OP Clinic Progress Note ---
PRIMARY CARE PROVIDER: Dr. Harshad Ramsay CHIEF COMPLAINT: "I feel well." Patient is here for a follow up for her MAC therapy. SIGNIFICANT PROBLEM LIST: 1. Mycobacterium avium-intracellulare complex infection diagnosed in 2011. Treated with clarithromycin/ethambutol/rifampin for 16 to 18 months; recurrent positive CINTHYA cultures in April 2014 and October 2016. No further medical therapy at the time. Positive CINTHYA culture results in March 2017 and April 2017: Therapy with ethambutol/azithromycin /rifampin started on May 09, 2017. 2. Renal insufficiency. 3. Hypertension. 4. Carotid stenosis. 5. Transient ischemic attack: On Plavix. 6. Glaucoma. 7. Total abdominal hysterectomy. HISTORY OF PRESENT ILLNESS: This is an 87-year-old female who returns to clinic with her daughter. Patient states that she is doing well and that she feels well. She denies any nausea or vomiting. There is no jaundice. There is no abdominal pain. She does complain of dyspnea on exertion while climbing the stairs, otherwise, does well on flat surfaces in the home. She states that her cough is better since starting the medication. The daughter has nothing to add to her mother's statement. ALLERGIES: Codeine: Skin rash. MEDICATIONS: 1. Metoprolol 25 mg daily. 2. Montelukast 10 mg daily. 3. Estropipate 0.75 mg daily. 4. Clopidogrel 75 mg daily. 5. Carvedilol 25 mg b.i.d. 6. Aspirin 325 mg daily. 7. Latanoprost eye drops daily. 8. Ethambutol 1500 mg 3 times per week. 9. Rifampin 600 mg 3 times per week. 10. Azithromycin 500 mg 3 times per week. PHYSICAL EXAMINATION: VITAL SIGNS: BP: 182/80, P: 62, R: 20, T: 96.4, oxygen saturation 95% on room air. GENERAL: This is a well-developed, well-nourished female in no acute distress speaking in full sentences. HEENT: Pupils are equal and reactive. Oropharynx is clear. No thrush. LUNGS: Minimal crackles (improved). No wheezes. Good bilateral air excursion. CARDIAC: Rate and rhythm are regular. No murmur, rubs, or gallops. ABDOMEN: Soft and nontender. EXTREMITIES: No cyanosis, clubbing, or edema. LABORATORIES: 1. Chemistry on June 01, 2017: Sodium 137, potassium 4.7, chloride 98, carbon dioxide 26, BUN 22, creatinine 0.9, glucose 93, total bilirubin 0.6, AST 27, ALT 28, alkaline phosphatase 83, total protein 6.9, albumin 3.8. 2. CBC on June 01, 2017: White blood cell count 5.2, hemoglobin 12, hematocrit 37, platelet count 308,000. ASSESSMENT AND PLAN: PROBLEM #1: Pulmonary Mycobacterium avium-intracellulare infection. Patient is tolerating the ethambutol, rifampin, and erythromycin well. She had no complaints and her laboratories are within normal limits. She states that she feels slightly improved, especially her cough, which was one of her major complaints. PLAN: 1. Continue ethambutol 1500 mg 3 times per week. 2. Rifampin 600 mg 3 times per week. 3. Azithromycin 500 mg 3 times per week. 4. Repeat chemistry with LFTs prior to next visit. 5. Patient to return to clinic in 1 month. PROBLEM #2: Cough. As stated in problem #1, she feels her cough is slightly improved and she also feels that continuing her use of Robitussin DM is appropriate at present. PLAN: If cough worsens and patient desires a stronger cough medicine, I recommend hydrocodone cough syrup. cc: Dr. Harshad HARRIS
== END 2017-06-17 11:45 ==
LOC: PULMONARY 11:39
PROVIDERS: ATTEND Internal Medicine Pulmonary Disease
DX: A31.2 Disseminated mycobacterium avium-intracellulare complex (DMAC) (principal); N28.9 Disorder of kidney and ureter, unspecified; I10 Essential (primary) hypertension; I65.29 Occlusion and stenosis of unspecified carotid artery; R00.0 Tachycardia, unspecified; H40.9 Unspecified glaucoma; Z90.710 Acquired absence of both cervix and uterus; R05 Cough
CPT/HCPCS: 99214; G0463

== ENCOUNTER 2017-07-20 11:59 | Outpatient (CLI) | payer MEDICARE ==
[2017-07-20 12:46] LABS: eGFR (African) > 60; eGFR (Non-African) > 60
== END 2017-07-20 12:00 ==
LOC: LAB 11:59
PROVIDERS: ATTEND Internal Medicine Pulmonary Disease
DX: A31.0 Pulmonary mycobacterial infection (principal)
CPT/HCPCS: 36415; 80053; 82248

== ENCOUNTER 2017-07-22 11:38 | Outpatient (CLI) | payer MEDICARE ==
--- NOTE | 2017-07-29 15:21 | OP Clinic Progress Note ---
PRIMARY CARE PROVIDER: Dr. Harshad Ramsay CHIEF COMPLAINT: "I feel good. I am here to get more medicine." SIGNIFICANT PROBLEM LIST: 1. Mycobacterium avium-intracellulare complex infection diagnosed in 2011. Treated with clarithromycin/ethambutol/rifampin for 16 to 18 months; recurrent positive CINTHYA cultures in April 2014 and October 2016. No further medical therapy at the time. Positive CINTHYA culture results in March 2017 and April 2017: Therapy with ethambutol/azithromycin/rifampin started on May 09, 2017. 2. Renal insufficiency. 3. Hypertension. 4. Carotid stenosis. 5. Transient ischemic attack, on Plavix. 6. Glaucoma. 7. Total abdominal hysterectomy. HISTORY OF PRESENT ILLNESS: Patient returns to evaluate her tolerance of the MAC therapy. She denies any nausea or vomiting. There is no jaundice. There is no abdominal pain. Her appetite is good. Her weight is stable. She states that her cough is improved particularly at night and that she is not using as much of her cough syrup as she had been. She remains active. She did tell me that her son is in the recovery phase of Guillain-Pony disease. ALLERGIES: Codeine: Skin rash. PRESENT MEDICATIONS: 1. Metoprolol 25 mg daily. 2. Montelukast 10 mg daily. 3. Estropipate 0.75 mg daily. 4. Clopidogrel 75 mg daily. 5. Carvedilol 25 mg b.i.d. 6. Aspirin 325 mg daily. 7. Latanoprost eye drops daily. 8. Ethambutol 1500 mg 3 times per week. 9. Rifampin 600 mg 3 times per week. 10. Azithromycin 500 mg 3 times per week. 11. Robitussin DM cough syrup p.r.n. PHYSICAL EXAMINATION: VITAL SIGNS: BP: 165/71, P: 62, R: 20, T: 96.3. Room air oxygen saturation was 96%. Weight: 138 pounds. GENERAL: This is a well-developed thin female in no acute distress speaking in full sentences. HEENT: Pupils are equal and reactive to light. Oropharynx is clear. No thrush. No erythema. NECK: Supple. No lymphadenopathy. LUNGS: Scant crackles at right base. No wheezing. CARDIAC: Rate and rhythm are regular. No murmur, rubs, or gallops. ABDOMEN: Soft and nontender. EXTREMITIES: No clubbing, cyanosis, or edema. NEUROLOGIC: Alert and oriented x3. Grossly nonfocal. LABORATORIES: Laboratory done July 20, 2017, sodium 140, potassium 4, chloride 102, BUN 25, creatinine 0.8, glucose 96, total bilirubin 0.8, AST 25, ALT 27, alkaline phosphate 91, total protein 6.7, albumin 3.8. ASSESSMENT AND PLAN: PROBLEM #1: Pulmonary Mycobacterium avium-intracellulare infection. Patient continues to tolerate the ethambutol/azithromycin/rifampin without any problems. She states that she feels she is slightly better regarding her cough since she has started taking the MAC therapy. PLAN: 1. Continue ethambutol 1500 mg 3 times per week. 2. Continue rifampin 600 mg 3 times per week. 3. Continue azithromycin 500 mg 3 times per week. 4. Repeat chemistries with LFTs prior to next visit. 5. Return to clinic in 1 month. PROBLEM #2: Cough. Her cough is improved and she is taking her Robitussin DM less often. PLAN: If cough worsens and the patient desires a stronger cough medicine, I recommend hydrocodone cough syrup due to her allergy to codeine. cc: Dr. Harshad HARRIS
== END 2017-07-22 11:40 ==
LOC: PULMONARY 11:38
PROVIDERS: ATTEND Internal Medicine Pulmonary Disease
DX: A31.2 Disseminated mycobacterium avium-intracellulare complex (DMAC) (principal); R05 Cough; N28.9 Disorder of kidney and ureter, unspecified; I10 Essential (primary) hypertension; I65.29 Occlusion and stenosis of unspecified carotid artery; G45.9 Transient cerebral ischemic attack, unspecified; H40.9 Unspecified glaucoma; Z90.710 Acquired absence of both cervix and uterus
CPT/HCPCS: 99214; G0463

== ENCOUNTER 2017-08-16 09:15 | Outpatient (CLI) | payer MEDICARE ==
[2017-08-16 10:03] LABS: eGFR (African) > 60; eGFR (Non-African) > 60
== END 2017-08-16 09:16 ==
LOC: LAB 09:15
PROVIDERS: ATTEND Internal Medicine Pulmonary Disease
DX: A31.0 Pulmonary mycobacterial infection (principal)
CPT/HCPCS: 36415; 80053; 82248

== ENCOUNTER 2017-08-19 11:38 | Outpatient (CLI) | payer MEDICARE ==
[2017-08-19 12:59] LABS: BASOPHILS % 0.7 (0.0-1.5); MEAN CORPUSCULAR HEMOGLOBIN 28.7 pg (28.0-34.0); MEAN CORPUSCULAR VOLUME 90.3 fl (80.0-100.0); MONOCYTES % 9.3 % (0.0-11.0); NEUTROPHILS # 2.8 # k/uL (1.4-7.7)
--- NOTE | 2017-09-02 07:54 | OP Clinic Progress Note ---
PRIMARY CARE PROVIDER: Dr. Harshad Ramsay CHIEF COMPLAINT: "I have been having a headache for about a week and have noticed more bruising on my skin." SIGNIFICANT PROBLEM LIST: 1. Mycobacterium avium-intracellulare complex infection diagnosed in 2011 and treated with clarithromycin/ethambutol/rifampin for 16 to 18 months; recurrent positive CINTHYA cultures in April 2014 and October 2016. No further medical therapy at that time. Positive CINTHYA culture results in March 2017 and April 2017: Therapy with ethambutol/azithromycin/rifampin started on May 09, 2017. 2. Renal insufficiency. 3. Hypertension. 4. Carotid stenosis. 5. Transient ischemic attack, on Plavix. 6. Glaucoma. 7. Total abdominal hysterectomy. HISTORY OF PRESENT ILLNESS: This is an 87-year-old female who comes back for her assessment for being treated for a MAC pulmonary infection. She denies any nausea, vomiting, or abdominal bloating. There is no diarrhea. No loss of appetite. Overall, there are no GI complaints. She is complaining of a headache that she has had for approximately the last week. She is not sure but she thinks it might be related to sinus allergies. The other issue that is concerning to her is she has noted an increased bruising of her skin. There has been no overt bleeding. She has been continuing to take her medicine as prescribed. She began her MAC therapy on May 09, 2017, and is not sure if her cough is any better now on August 19, 2017. She is also concerned that her headache might be related to her blood pressure. She notes that she has had a high blood pressure at home via her machine. She has brought this to the attention of her primary care provider and they were concerned that her machine was not functioning. She states she bought a second one and she still had readings consistent with high blood pressure. ALLERGIES: Codeine: Skin rash. PRESENT MEDICATIONS: 1. Metoprolol 25 mg daily. 2. Montelukast 10 mg daily. 3. Estropipate 0.75 mg daily. 4. Clopidogrel 75 mg daily. 5. Carvedilol 25 mg b.i.d. 6. Aspirin 325 mg daily. 7. Latanoprost eye drops daily. 8. Ethambutol 1500 mg 3 times per week. 9. Rifampin 600 mg 3 times per week. 10. Azithromycin 500 mg 3 times per week. 11. Robitusronny PERES p.r.n. cough. PHYSICAL EXAMINATION: VITAL SIGNS: BP: 180/79, P: 58, R: 20, T: 97.2, oxygen saturation 96% on room air. General: This is a well-developed female in no acute distress speaking in full sentences. HEENT: Pupils are equal and reactive to light. Oropharynx is clear. No thrush. No erythema. Lungs: Good bilateral air excursion. Crackles at the left base. Cardiac: Rate and rhythm are regular. No murmur, rubs, or gallops. Abdomen: Soft and nontender. Extremities: No cyanosis, clubbing, or edema. Neurologic: Alert and oriented x3. Grossly nonfocal exam. Skin: No obvious bruising noted. LABORATORIES: Chemistry on August 16, 2017. Sodium 138, potassium 4.3, chloride 102, carbon dioxide 26, BUN 17, creatinine 0.8, glucose 76, total bilirubin 0.7, AST 24, ALT 22, alkaline phosphatase 86, albumin 3.8. ASSESSMENT AND PLAN: PROBLEM #1: Pulmonary Mycobacterium avium-intracellulare infection. Patient continues to tolerate the medicine from a GI standpoint. However, I am concerned about her new complaint of headache and easy bruising and overall not feeling well for the last week. Rifampin can cause thrombocytopenia. PLAN: 1. Discontinue ethambutol. 2. Discontinue azithromycin. 3. Discontinue rifampin. 4. Check CBC with platelets. PROBLEM #2: Headache. Perhaps sinus allergies versus hypertension. There are no localizing neurologic findings. PLAN: 1. I encouraged the patient to make an appointment with Dr. Ramsay for an evaluation of the headaches. 2. I gave her a copy of her vital signs that we have kept track of since February 04, 2017, which nicely documents overall she has consistent systolic hypertension. PROBLEM #3: Bruising per patient history. PLAN: 1. Check CBC with platelets. 2. Return to clinic in 1 month. cc: Dr. Sobia HARRIS
== END 2017-08-19 11:39 ==
LOC: PULMONARY 11:38
PROVIDERS: ATTEND Internal Medicine Pulmonary Disease
DX: A31.0 Pulmonary mycobacterial infection (principal); R51 Headache; M79.81 Nontraumatic hematoma of soft tissue; N28.9 Disorder of kidney and ureter, unspecified; I10 Essential (primary) hypertension; I65.29 Occlusion and stenosis of unspecified carotid artery; G45.9 Transient cerebral ischemic attack, unspecified; H40.9 Unspecified glaucoma
CPT/HCPCS: 36415; 85025; 99214; G0463

== ENCOUNTER 2017-09-14 12:40 | Outpatient (CLI) | payer MEDICARE | END 2017-09-14 12:42 | LOC: LABRHC 12:40 | PROVIDERS: ATTEND Family Medicine | DX: L30.9 Dermatitis, unspecified (principal) ==

== ENCOUNTER 2017-09-16 10:40 | Outpatient (CLI) | payer MEDICARE ==
--- NOTE | 2017-09-20 14:43 | OP Clinic Progress Note ---
CHIEF COMPLAINT: "I am feeling better, however, now, I have a skin rash." SIGNIFICANT PROBLEM LIST: 1. Mycobacterium avium-intracellulare complex infection diagnosed in 2011 and treated with clarithromycin/ethambutol/rifampin for 16 to 18 months; recurrent positive CINTHYA cultures in April 2014 and October 2016. No further medical therapy at that time. Positive CINTHYA culture results in March 2017 and April 2017: Therapy with ethambutol/azithromycin/rifampin started on May 09, 2017; therapy discontinued on August 19, 2017. 2. Renal insufficiency. 3. Hypertension. 4. Carotid stenosis. 5. Transient ischemic attack, on Plavix. 6. Glaucoma. 7. Total abdominal hysterectomy. HISTORY OF PRESENT ILLNESS: This is an 87-year-old female who returns to clinic after 1 month. She currently is denying headaches and bruising, which were her complaints last month. Now, she notes an evanescent rash that is very pruritic. Benadryl helps her but makes her sleepy. Fexofenadine, the generic for Saloni, does not help her. She has seen Dr. Ramsay several times for this rash and there is a skin biopsy pending. She denies any abdominal pain. There is no nausea or vomiting. No abdominal bloating. No change in bowel habits. She states that after stopping the CINTHYA therapy, her cough is not worse, possibly a little bit better. Currently, she is not needing to take her Robitussin DM cough syrup. She does complain about occasional dyspnea on exertion. She states she does have an albuterol MDI. She does not take it often and is unsure if it helps her. ALLERGIES: Codeine: Skin rash. MEDICATIONS: 1. Metoprolol 25 mg daily. 2. Montelukast 10 mg daily. 3. Estropipate 0.75 mg daily. 4. Clopidogrel 75 mg daily. 5. Carvedilol 25 mg b.i.d. 6. Aspirin 325 mg daily. 7. Latanoprost eye drops daily. 8. Robitussin DM Cough Syrup p.r.n. 9. Diprolene 0.05% cream t.i.d. 10. Benadryl 25 mg p.r.n. itching. PHYSICAL EXAMINATION: VITAL SIGNS: BP: 155/70, P: 54, R: 20, T: 97.9, oxygen saturation 97% on room air. GENERAL: This is a well-developed, well-nourished female in no acute distress speaking in full sentences. HEENT: Pupils are equal and reactive to light. Oropharynx is clear. No thrush. No erythema. NECK: Supple. No JVD. No lymphadenopathy. LUNGS: Good bilateral air excursion. Minimal crackles at the left base. CARDIAC: Rate and rhythm are regular. No murmur, rubs, or gallops. ABDOMEN: Soft and nontender. EXTREMITIES: No edema, cyanosis, or clubbing. NEUROLOGIC: Alert and oriented x3. Grossly nonfocal exam. SKIN: Punctate, discrete, blanching lesions with a small red center noticed on left anterior chest and right posterior thorax. ASSESSMENT AND PLAN: PROBLEM #1: Pulmonary mycobacterium avium-intracellulare infection. Currently, the patient seems to be doing well off of the MAC treatment. I do not know if the previous month's complaints of headache and bruising were related to the medication. The bruising I doubt, perhaps the headaches. Her current skin rash obviously is not due to the medication, although as she rightly points out that if she were still on the medication, we would blame that. She does state that her need for cough syrup is minimal. PLAN: 1. Continue to monitor for pulmonary symptoms due to MAC. 2. Continue to hold off on further MAC therapy at present. PROBLEM #2: Dyspnea on exertion. Patient denies shortness of breath at rest but does note at times, dyspnea on exertion and is not sure whether albuterol MDI has helped her in the past and I think it is albuterol, she vaguely remembers the name Celso. PLAN: 1. Patient to bring the inhaler with her to her next visit. 2. Continue albuterol MDI p.r.n. shortness of breath. PROBLEM #3: Skin rash. Skin biopsy pending. PLAN: 1. I recommended to the patient that she can get [id number] diphenhydramine spray which might help her pruritus and not make her sleepy. 2. Return to clinic in 1 month. cc: Dr. Harshad HARRIS
== END 2017-09-16 10:42 ==
LOC: PULMONARY 10:40
PROVIDERS: ATTEND Internal Medicine Pulmonary Disease
DX: A31.0 Pulmonary mycobacterial infection (principal); R06.09 Other forms of dyspnea; R21 Rash and other nonspecific skin eruption; N28.9 Disorder of kidney and ureter, unspecified; I10 Essential (primary) hypertension; I65.23 Occlusion and stenosis of bilateral carotid arteries; G45.9 Transient cerebral ischemic attack, unspecified; H40.9 Unspecified glaucoma
CPT/HCPCS: 99214; G0463

== ENCOUNTER 2017-11-04 10:30 | Outpatient (CLI) | payer MEDICARE ==
--- NOTE | 2017-11-16 10:22 | OP Clinic Progress Note ---
PRIMARY CARE PROVIDER: Dr. Harshad Rasmay CHIEF COMPLAINT: "My cough is back." SIGNIFICANT PROBLEM LIST: 1. 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 Treated with clarithromycin/ethambutol/rifampin for 16 to 18 months. Recurrent positive CINTHYA cultures in April 2014 and October 2016, no further medical therapy at that time. Positive CINTHYA culture results in March 2017 and April 2017: Therapy with ethambutol/azithromycin/rifampin started on May 09, 2017, therapy discontinued on August 19, 2017. 2. Significant bronchiectasis. 3. Renal insufficiency. 4. Hypertension. 5. Carotid stenosis. 6. Transient ischemic attack, on Plavix. 7. Glaucoma. 8. Total abdominal hysterectomy. HISTORY OF PRESENT ILLNESS: This is an 87-year-old female who returns to clinic. She has not been on any therapy for MAC since August 19, 2017. At that time, she was complaining of headaches and bruising, so I stopped her medicines. The medicines had nothing to do with the symptoms. The patient states she was doing fine with no to minimal cough. Today, she states that her cough has returned. It is mainly a dry cough and it is worse at night and she says it is worse when she lies on her left side. The other major complaint she had when we first met was fatigue. She states she does not have fatigue at present. She denies shortness of breath. She is not using her albuterol rescue inhaler at all. She does have a history of hay fever and she has stated that she does get relief from fluticasone nasal spray. At the end of August and beginning of September, patient developed a skin rash. A skin biopsy was done at that time and the thought was that it was due to an insect bite. The MAC therapy had been discontinued on August 19, 2017, and her skin biopsy was done almost a month later. ALLERGIES: Codeine--Skin rash. MEDICATIONS: 1. Metoprolol 25 mg daily. 2. Montelukast 10 mg daily. 3. Estropipate 0.75 mg daily. 4. Clopidogrel 75 mg daily. 5. Carvedilol 25 mg b.i.d. 6. Aspirin 325 mg daily. 7. Latanoprost eye drops. 8. Robitussin DM p.r.n. 9. Benadryl 25 mg p.r.n. PHYSICAL EXAMINATION: GENERAL: This is a well-developed, well-nourished female in no acute distress speaking in full sentences. VITAL SIGNS: BP: 198/80, P: 50, R: 18, T: 97.7, room air oxygen saturation is 96%. Weight: 138 pounds (No change). HEENT: Pupils are equal and reactive to light. Oropharynx is clear. No thrush. No erythema. Neck: Supple. No JVD. Lungs: Squeaks heard on inspiration on the left. No crackles or wheezes noted. Cardiac: Rate and rhythm are regular. No murmur, rubs, or gallops. Abdomen: Soft and nontender. Extremities: No cyanosis, clubbing, or edema. Neurologic: Alert and oriented x3. Grossly nonfocal exam. IMAGING: All imaging independently reviewed by me personally. 1. PFT on 11/08/16 done at [facility]. FVC was 1.87 liters, 86% of predicted, FEV1 was 1.42 liters, 90% of predicted, FEV1/FVC was 0.76, Diffusion uncorrected was 11.47, 48% of predicted, TLC was 3.98 liters, 79% of predicted. Interpretation: No obstruction. No restriction. Significantly low DLCO. ASSESSMENT AND PLAN: PROBLEM #1: Cough. This may be because of the MAC pulmonary infection, bronchiectasis, and/or sinus congestion with postnasal drip. PLAN: 1. Chest x-ray. 2. Chemistries, CBC, and LFTs. 3. Reassess symptoms in 2 weeks. PROBLEM #2: Pulmonary Mycobacterium avium-intracellulare infection. At present, patient has been off therapy since August 19, 2017. Her symptom of cough could be due to the CINTHYA infection. PLAN: 1. Chest x-ray. 2. Chemistries, CBC, and LFTs. 3. Reassess patient in 2 weeks to decide whether to put patient back on CINTHYA therapy. PROBLEM #3: Sinus congestion. Patient states she definitely has environmental allergies and that she has received relief when she uses nasal spray, fluticasone. PLAN: 1. Encourage patient to use fluticasone nasal spray to help minimize sinus congestion since this could very well contribute to her cough. 2. Patient to return to clinic in 2 weeks. cc: Dr. Harshad HARRIS
== END 2017-11-04 10:32 ==
LOC: PULMONARY 10:30
PROVIDERS: ATTEND Internal Medicine Pulmonary Disease
DX: A31.0 Pulmonary mycobacterial infection (principal); R05 Cough; R09.81 Nasal congestion
CPT/HCPCS: 99214; G0463

== ENCOUNTER 2017-11-09 14:35 | Outpatient (CLI) | payer MEDICARE ==
[2017-11-09 15:48] LABS: BASOPHILS % 1.1 (0.0-1.5); EOSINOPHILS % 1.6 % (0.0-6.8); MEAN CORPUSCULAR HEMOGLOBIN 29.1 pg (28.0-34.0); NEUTROPHILS # 2.9 # k/uL (1.4-7.7)
[2017-11-09 16:23] LABS: eGFR (African) > 60; eGFR (Non-African) > 60
--- NOTE | 2017-11-09 18:17 | Diagnostic Imaging Report ---
JULY KONG [facility] [id number] [facility] [address] [place] [address]. [id number] Report Submission Date: Nov 09, 2017 3:04:45 PM CDT Patient Study Name: VEE RICE Date: Nov 09, 2017 2:44:05 PM CDT Modality Type: DX Gender: F Description: CHEST : [birth year] Institution: [facility] Physician: JULY KONG Examination: PA and lateral chest. History: Evaluate lung downey. CXR, COUGH FOR ABOUT A MONTH, PT STATES HX OF Pulmonary Mycobacterium (Hx) Comparison exam: 23 April 2016 Findings: PA lateral chest demonstrate a prominent cardiac and mediastinal silhouette. Vascular calcifications involving aortic arch. Continued bihilar parenchymal haziness. No blunting of the costophrenic margins. Osseous structures are appropriate for age. Impression: Continued parenchymal infiltrates. No gross effusion. Electronically signed on Nov 09, 2017 3:04:45 PM CDT by: Giancarlo HARRIS
== END 2017-11-09 14:36 ==
LOC: LAB 14:35
PROVIDERS: ATTEND Internal Medicine Pulmonary Disease
DX: J47.9 Bronchiectasis, uncomplicated (principal); R05 Cough
CPT/HCPCS: 36415; 71046; 80053; 82248; 85025

== ENCOUNTER 2017-11-18 10:24 | Outpatient (CLI) | payer MEDICARE ==
--- NOTE | 2017-11-21 12:55 | OP Clinic Progress Note ---
PRIMARY CARE PROVIDER: Dr. Harshad Ramsay CHIEF COMPLAINT: "My cough is getting worse." SIGNIFICANT PROBLEM LIST: 1. 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 Treated with clarithromycin/ethambutol/rifampin for 16 to 18 months. Recurrent positive CINTHYA cultures in April 2014 and October 2016, no further medical therapy at that time. Positive CINTHYA culture results in March 2017 and April 2017: Therapy with ethambutol/azithromycin/rifampin started on May 09, 2017. Therapy subsequently discontinued for the possibility of drug side effects on August 19, 2017. Therapy restarted on November 18, 2017. 2. Significant bronchiectasis. 3. Renal insufficiency. 4. Hypertension. 5. Carotid stenosis. 6. Transient ischemic attack, on Plavix. 7. Glaucoma. 8. Total abdominal hysterectomy. HISTORY OF PRESENT ILLNESS: This is an 87-year-old female who returns to clinic. She states that her cough is increasing. She is now productive of sputum that is green to yellow in color. Otherwise, no outstanding complaints. No nausea, vomiting, abdominal pain, or abdominal bloating. She definitely would like to restart her MAC therapy. ALLERGIES: Codeine: Skin rash. MEDICATIONS: 1. Metoprolol 25 mg daily. 2. Montelukast 10 mg daily. 3. Estropipate 0.75 mg daily. 4. Clopidogrel 75 mg daily. 5. Carvedilol 25 mg b.i.d. 6. Aspirin 325 mg daily. 7. Latanoprost eye drops. 8. Robitussin DM p.r.n. 9. Benadryl 25 mg p.r.n. PHYSICAL EXAMINATION: GENERAL: This is a well-developed, well-nourished female in no acute distress speaking in full sentences. VITAL SIGNS: BP: 191/73, P: 56, R: 20, T: 97.1, oxygen saturation is 95% on room air. HEENT: Pupils are equal and reactive to light. Oropharynx is clear. No thrush. No erythema. NECK: Supple. No adenopathy. LUNGS: Good bilateral air excursion. Occasional crackles bilaterally. No wheeze or rhonchi. CARDIAC: Rate and rhythm are regular. No murmur, rubs, or gallops. ABDOMEN: Soft and nontender. EXTREMITIES: No cyanosis, clubbing, or edema. NEUROLOGIC: Alert and oriented x3. Grossly nonfocal exam. IMAGING: All imaging independently reviewed by me personally. 1. Chest x-ray on November 09, 2017. Bilateral cystic changes. Lingular and right lower lobe soft infiltrate (Slight improvement from chest x-ray on April 23, 2016). LABORATORIES: 1. CBC on November 09, 2017. WBC 4.9, hemoglobin 11.8, hematocrit 37, platelets 294,000. 2. Chemistries on November 09, 2017. Sodium 135, potassium 4.3, chloride 98, CO2 was 27, BUN 19, creatinine 1. AST 20, ALT 18, alkaline phosphatase 92, total protein 6.8, albumin 3.9. 3. Calculated creatinine clearance via the Cockcroft-Gault method was 37.7 milliliters per minute. ASSESSMENT AND PLAN: PROBLEM #1: Cough. After stopping the CINTHYA therapy, her cough over approximately 2 months has worsened. This may be due to the pulmonary MAC infection, bronchiectasis, along with sinus congestion with postnasal drip. PROBLEM #2: Pulmonary Mycobacterium avium-intracellulare infection. As mentioned in the significant problem list, CINTHYA therapy was stopped on August 19, 2017, due to complaint of headache and bruising. Those complaints were not due to the MAC therapy. Her symptoms off MAC therapy have continued to progress and worsen. PLAN: 1. Initiate therapy for MAC pulmonary infection again. 2. Ethambutol 1500 mg 3 times per week. 3. Rifampin 600 mg 3 times per week. 4. Azithromycin 500 mg 3 times per week. 5. Check CBC with platelets, chemistries, and LFTs prior to next visit. 6. Patient educated again strongly that all MAC therapy must be stopped if she experiences nausea, vomiting, abdominal bloating, or abdominal pain, and she must contact the Pulmonary Clinic. PROBLEM #3: Sinus congestion. PLAN: 1. Continue fluticasone nasal spray. 2. Return in 2 weeks. cc: Dr. Harshad HARRIS
== END 2017-11-18 10:26 ==
LOC: PULMONARY 10:24
PROVIDERS: ATTEND Internal Medicine Pulmonary Disease
DX: A31.0 Pulmonary mycobacterial infection (principal); R05 Cough; R09.81 Nasal congestion
CPT/HCPCS: 99214; G0463

== ENCOUNTER 2017-11-29 10:21 | Outpatient (CLI) | payer MEDICARE ==
[2017-11-29 11:54] LABS: MEAN CORPUSCULAR HEMOGLOBIN 28.1 pg (28.0-34.0); MEAN CORPUSCULAR VOLUME 89.5 fl (80.0-100.0)
[2017-11-29 11:59] LABS: eGFR (African) > 60; eGFR (Non-African) > 60
== END 2017-11-29 10:22 ==
LOC: LAB 10:21
PROVIDERS: ATTEND Internal Medicine Pulmonary Disease
DX: A31.0 Pulmonary mycobacterial infection (principal); R05 Cough
CPT/HCPCS: 36415; 80053; 82248; 85027

== ENCOUNTER 2017-12-02 12:30 | Outpatient (CLI) | payer MEDICARE ==
--- NOTE | 2017-12-05 14:23 | OP Clinic Progress Note ---
PRIMARY CARE PROVIDER: Dr. Harshad Ramsay CHIEF COMPLAINT: "I am here for follow up for my MAC therapy." SIGNIFICANT PROBLEM LIST: 1. 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 Treated with clarithromycin/ethambutol/rifampin for 16 to 18 months. Recurrent positive CINTHYA cultures in April 2014 and October 2016, no further medical therapy at that time. Positive CINTHYA culture results in March 2017 and April 2017: Therapy with ethambutol/azithromycin/rifampin started on May 09, 2017. Therapy subsequently discontinued for the possibility of drug side effects on August 19, 2017. The patient's complaints were not related to the MAC therapy. Therapy restarted on November 18, 2017. 2. Significant bronchiectasis. 3. Renal insufficiency. 4. Hypertension. 5. Carotid stenosis. 6. Transient ischemic attack, on Plavix. 7. Glaucoma. 8. Total abdominal hysterectomy. HISTORY OF PRESENT ILLNESS: This is an 87-year-old female who returns to clinic. This time her daughter, Melanie, is accompanying her. Patient states she has no nausea or vomiting, no abdominal bloating, and no abdominal pain. She is taking her medications as prescribed. At present, she complains of sinus congestion, however, she is not using her fluticasone nasal spray. ALLERGIES: Codeine: Skin rash. PRESENT MEDICATIONS: 1. Metoprolol 25 mg daily. 2. Montelukast 10 mg daily. 3. Estropipate 0.75 mg daily. 4. Clopidogrel 75 mg daily. 5. Carvedilol 25 mg b.i.d. 6. Aspirin 325 mg daily. 7. Latanoprost eye drops. 8. Robitussin DM cough syrup p.r.n. 9. Benadryl 25 mg p.r.n. 10. Ethambutol 1500 mg 3 times per week. 11. Azithromycin 500 mg 3 times per week. 12. Rifampin 600 mg 3 times per week. PHYSICAL EXAMINATION: VITAL SIGNS: BP: 148/68, P: 62, R: 20, T: 98.1, oxygen saturation is 96% on room air. GENERAL: This is a well-developed, well-nourished female in no acute distress speaking in full sentences. HEENT: Pupils are equal and reactive to light. Oropharynx is clear. No thrush. No erythema. NECK: Supple. No lymphadenopathy. LUNGS: Good air excursion bilaterally. Slight crackles at the left base. No wheezes. CARDIAC: Rate and rhythm are regular. No murmur, rubs, or gallops. ABDOMEN: Soft and nontender. EXTREMITIES: No cyanosis, clubbing, or edema. NEUROLOGIC: Alert and oriented x3. Grossly nonfocal exam. LABORATORIES: 1. CBC on November 29, 2017: Hemoglobin 12, hematocrit 39, white count 6.10, platelets 303,000. 2. Chemistries on November 29, 2017: Sodium 135, potassium 4.5, chloride 98, bicarbonate 27, BUN 17, creatinine 0.9, glucose of 84, AST 20, ALT 22, alkaline phosphatase 90, total protein 7.7, albumin 4.2. ASSESSMENT AND PLAN: PROBLEM #1: Pulmonary Mycobacterium avium-intracellulare complex infection. Patient restarted her medications on November 18, 2017, and is tolerating the medications well. PLAN: 1. Continue ethambutol 1500 mg 3 times per week. 2. Continue Rifampin 600 mg 3 times per week. 3. Continue azithromycin 500 mg 3 times per week. 4. Check CBC with platelets, chemistries, and LFTs prior to next visit. 5. Patient educated again to stop all medications immediately if any complaints of nausea, vomiting, or abdominal discomfort. PROBLEM #2: Sinus congestion continues but is not worrisome enough that the patient is not using her fluticasone nasal spray. PLAN: 1. Recommended to resume fluticasone nasal spray. 2. Return to clinic in 1 month. STEVEN
== END 2017-12-02 14:26 ==
LOC: PULMONARY 12:30
PROVIDERS: ATTEND Internal Medicine Pulmonary Disease
DX: A31.0 Pulmonary mycobacterial infection (principal); R09.81 Nasal congestion
CPT/HCPCS: 99214; G0463

== ENCOUNTER 2018-01-03 08:37 | Outpatient (CLI) | payer MEDICARE ==
[2018-01-03 17:01] LABS: BASO % 0.6 % (0.0-1.5); EOS % 1.3 % (0.0-6.8); LYMPH ABS # 1.21 thou/uL (0.60-4.00); MCH. 29.3 pg (28.0-34.0); MCV 87.4 fL (80.0-100.0); MONOCYTE ABS # 0.47 thou/uL (0.00-0.90); PLATELET COUNT 294 thou/uL (130-400)
[2018-01-03 17:50] LABS: DIRECT BILIRUBIN <0.2 mg/dL (<0.4); TOTAL PROTEIN 6.8 g/dL (6.0-8.5)
[2018-01-04 07:14] LABS: eGFR (Non-African) > 60
== END 2018-01-03 08:40 ==
LOC: LAB 08:37
PROVIDERS: ATTEND Internal Medicine Pulmonary Disease
DX: A31.0 Pulmonary mycobacterial infection (principal)
CPT/HCPCS: 36415; 80053; 80076; 82248; 85025

== ENCOUNTER 2018-01-03 20:06 | Emergency (ER) | payer MEDICARE ==
--- NOTE | 2018-01-03 20:27 | ED Physician Documentation ---
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 pt presents to the ED c/o Left Knee pain 06/18. Stabbing, nonradiating worse with ambulation. pt denies injury. Pt has a Hx of mycobacterium- stable and sees a entertainment usher dr yates. Dr sales is PCP. pt lives alone. pt denies other pain or injury/complaints. Location of Injury: L knee Onset: other (today) Timing: still present Duration: constant, intermittent episodes Recent Injury: No (pt denies injury ) Severity: moderate Quality: pain Exacerbated By: walking Relieved By: rest Associated Symptoms: denies: chest pain, shortness of breath, rapid heart rate, fainting - ROS CONST: no problems. denies: fever, sweating MS/SKIN/LYMPH: none. denies: calf pain CVS/RESP: none. denies: chest pain, shortness of breath GI/: none. denies: abdominal pain EYES/ENT: none NERUO/PSYCH: denies: headache, difficulty walking, dizziness - PAST HX Past History: other (mycobacterium, HTN) PE Risk Factors: none Other History: hypertension Surgeries/Procedures: appendectomy, hysterectomy Allergies/Adverse Reactions: Allergies Allergy/AdvReac Type Severity Reaction Status Date / Time codeine Allergy Verified 01/03/18 20:58 Home Medications: Ambulatory Orders Medication Instructions Recorded Aspirin 325 mg PO DAILY u2 01/21/17 Latanoprost 2.5 ml OP HS 01/21/17 Losartan/Hydrochlorothiazide 1 each PO DAILY u2 01/21/17 [Losartan-Hctz 50-12.5 Mg Tab] - SOCIAL HX Smoking History: non-smoker - FAMILY HX Family History: no significant history - VITAL SIGNS Vital Signs: Vital Signs Temp Pulse Resp BP Pulse Ox 97.8 F 67 16 162/58 99 01/03/18 20:10 01/03/18 20:10 01/03/18 20:10 04/24/16 00:51 01/03/18 20:10 - REVIEWED ASSESSMENTS Nursing Assessment Reviewed: Yes Vitals Reviewed: Yes ED Results Lab/Radiology - Radiology Radiology Impressions: Left knee 3 views Date of Exam: January 03, 2018. History: LEFT KNEE PAIN, NO KNOWN INJURY (Hx) / ITS.REASON Left knee pain Findings: Degenerative osteoarthritic changes are present. There is no evidence of acute fracture or dislocation. The patella is in appropriate relationship with the distal femur. Impression: Degenerative osteoarthritic changes. Electronically signed on Jan 03, 2018 9:44:09 PM CDT by: Alex Hudson - Orders Orders: ED Orders Category Date Time Status Abrahan Wrap Affected Extremity 1T Care 01/03/18 22:07 Ordered XR KNEE 3 VIEWS [KNEE 3 VIEWS] [RAD] Stat Exams 01/03/18 Taken traMADol HCL [Ultram] Med 01/03/18 20:58 Discontinued 50 mg PO NOW ONE Lower Extremity Problem - EXAM General Appearance: no distress Hips: bilateral hip: non-tender, normal inspection, normal range of motion, no evidence of injury Legs: right: non-tender, normal inspection, normal range of motion, no evidence of injury Knees: right: normal inspection, normal range of motion, no evidence of injury, left: other (Left limited ROM. no tenderness, no joint instability, no effusion), bilateral: non-tender Ankle: bilateral: non-tender, normal inspection, normal range of motion, no evidence of injury Neuro/Tendon: normal sensation, normal motor functions, normal tendon functions EENT: eye inspection normal RESPIRATORY: no resp distress CVS: reg rate & rhythm JOINT: joints nml VASCULAR: No: Paige's sign NEURO/PSYCH: oriented X3, CN's nml as tested SKIN: warm/dry BACK: normal inspection Discharge Clincal Impression: Osteoarthritis Qualifiers: Osteoarthritis location: knee Osteoarthritis type: primary Laterality: left Qualified Code(s): 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 Rest. tylenol 650 mg every 5-6 hours as needed for pain Ibuprofen 600 mg every 6 hours for inflammation. follow up with primary care this week Return if worse Condition: Good Disposition: 01 HOME, SELF-CARE Decision to Admit: NO Date of Decison to Admit: 01/03/18 Decision Time: 22:10
[2018-01-03] MEDS: traMADol HCL 50 MG TABLET PO ONE (21:24)
[2018-01-03 22:39] VITALS: BP 127/68
--- NOTE | 2018-01-04 06:55 | Diagnostic Imaging Report ---
ENRICO FARIA [facility] [id number] [facility] [address] [address] Report Submission Date: Jan 03, 2018 9:44:09 PM CDT Patient Study Name: VEE RICE Date: Jan 03, 2018 9:19:52 PM CDT Modality Type: DX Gender: F Description: LOWER EXTREMITY : [birth year] Institution: [facility] Physician: ENRICO FARIA Left knee 3 views Date of Exam: January 03, 2018. History: LEFT KNEE PAIN, NO KNOWN INJURY (Hx) / ITS.REASON Left knee pain Findings: Degenerative osteoarthritic changes are present. There is no evidence of acute fracture or dislocation. The patella is in appropriate relationship with the distal femur. Impression: Degenerative osteoarthritic changes. Electronically signed on Jan 03, 2018 9:44:09 PM CDT by: Alex HARRIS
== END 2018-01-03 22:25 | disposition home or self-care (01) ==
LOC: ED 20:06
DX: M17.12 Unilateral primary osteoarthritis, left knee (principal)
CPT/HCPCS: 73562; 99283

== ENCOUNTER 2018-01-20 12:34 | Outpatient (CLI) | payer MEDICARE ==
--- NOTE | 2018-01-31 10:06 | OP Clinic Progress Note ---
PRIMARY CARE PROVIDER: Dr. Harshad Ramsay CHIEF COMPLAINT: "I am here for follow up for my MAC therapy." SIGNIFICANT PROBLEM LIST: 1. 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 Treated with clarithromycin/ethambutol/rifampin for 16 to 18 months. Recurrent positive CINTHYA cultures in April 2014 and October 2016, no further medical therapy at that time. Positive CINTHYA culture results in March 2017 and April 2017: Therapy with ethambutol/azithromycin/rifampin started on May 09, 2017. Therapy subsequently discontinued for the possibility of drug side effects on August 19, 2017. The patient's complaints were not related to the MAC therapy. Therapy restarted on November 18, 2017. 2. Significant bronchiectasis. 3. Renal insufficiency. 4. Hypertension. 5. Carotid stenosis. 6. Transient ischemic attack, on clopidogrel. 7. Glaucoma. 8. Total abdominal hysterectomy. HISTORY OF PRESENT ILLNESS: Patient has no complaints regarding her MAC therapy. She denies nausea and vomiting. There is no abdominal pain. She does still have a cough, however, it is nonproductive. PRESENT MEDICATIONS: 1. Metoprolol 25 mg daily. 2. Montelukast 10 mg daily. 3. Estropipate 0.75 mg daily. 4. Clopidogrel 75 mg daily. 5. Carvedilol 25 mg b.i.d. 6. Aspirin 325 mg daily. 7. Latanoprost eye drops at bedtime. 8. Robitussin DM over the counter p.r.n. 9. Benadryl 25 mg 1 tablet p.r.n. 10. Ethambutol 1500 mg 3 times per week. 11. Azithromycin 500 mg 3 times per week. 12. Rifampin 600 mg 3 times per week. ALLERGIES: Codeine: Skin rash. PHYSICAL EXAMINATION: GENERAL: This is a well-developed thin female in no acute distress speaking in full sentences. VITAL SIGNS: BP: 152/70, P: 67, R: 18, T: 97.5, room air oxygen saturation was 92%. HEENT: Pupils are equal and reactive to light. Oropharynx is clear. No thrush. No erythema. NECK: Supple. No adenopathy. LUNGS: Decreased breath sounds in the left base. No crackles. No wheezes. No rhonchi. CARDIAC: Rate and rhythm are regular. No murmur, rubs, or gallops. ABDOMEN: Soft and nontender. EXTREMITIES: No cyanosis, clubbing, or edema. NEUROLOGIC: Alert and oriented x3. Grossly nonfocal exam. LABORATORIES: 1. CBC done January 03, 2018. Hemoglobin 12.5, hematocrit 37, white count 5.2, platelets 294,000. 2. Chemistries done on January 03, 2018. Sodium 135, potassium 4.0, chloride 99, bicarbonate 28, BUN 18, creatinine 0.9, glucose of 58. LFTs within normal limits. ASSESSMENT: PROBLEM #1: Pulmonary Mycobacterium avium-intracellulare complex infection. Patient is tolerating her MAC medicines fine both clinically and via the laboratory. At this visit, she is a little unclear if these medicines are making any difference at all. PLAN: 1. Continue Ethambutol 1500 mg 3 times per week. 2. Continue Rifampin 600 mg 3 times per week. 3. Continue Azithromycin 500 mg 3 times per week. 4. Check CMP, CBC with platelets prior to next visit. 5. Chest x-ray, PA and lateral prior to next visit. 6. Return to clinic in 1 month. PROBLEM #2: Sinus congestion. Overall, doing well. PLAN: Continue fluticasone nasal spray p.r.n. cc: Dr. Harshad HARRIS
== END 2018-01-20 12:35 ==
LOC: PULMONARY 12:34
PROVIDERS: ATTEND Internal Medicine Pulmonary Disease
DX: A31.2 Disseminated mycobacterium avium-intracellulare complex (DMAC) (principal); R09.81 Nasal congestion
CPT/HCPCS: 99213; G0463

== ENCOUNTER 2018-02-11 12:36 | Emergency (ER) | payer MEDICARE ==
[2018-02-11 13:17] LABS: MEAN CORPUSCULAR HEMOGLOBIN 29.9 pg (28.0-34.0)
[2018-02-11 13:18] LABS: BASOPHILS % 0.3 (0.0-1.5); EOSINOPHILS % 1.8 % (0.0-6.8); MONOCYTES % 7.7 % (0.0-11.0)
--- NOTE | 2018-02-11 13:23 | ED Physician Documentation ---
General Adult - HISTORIAN Historian: patient, friend, other (daughter) - HPI Stated Complaint: ? TIA Chief Complaint: General Adult Additional Information: Patient presents with sudden onset of difficulty with speech. Patient states she was returning from [facility], while in the car with her friend at 12:15 she experienced sudden onset of difficulty with speech. Her friend said her speech was fluent however the words she was speaking did not make since. The episode lasted approximately 15 minutes and resolved prior to arrival to ED. She has had 2 other episodes like this before, the last being March 2016. She is on Plavix 75mg daily and ASA 325mg daily. Blood pressure was elevated upon arrival at 205/75. - ROS CONST: denies: fever, weakness EYES/ENT: none CVS/RESP: denies: chest pain, shortness of breath GI/: denies: abdominal pain, vomiting, nausea MS/SKIN/LYMPH: none NEURO/PSYCH: denies: headache, dizziness - PAST HX Past History: CHF, hypertension Other History: TIA Surgeries/Procedures: none Allergies/Adverse Reactions: Allergies Allergy/AdvReac Type Severity Reaction Status Date / Time codeine Allergy Verified 02/11/18 13:06 Home Medications: Ambulatory Orders Medication Instructions Recorded Aspirin 325 mg PO DAILY u2 01/21/17 Latanoprost 2.5 ml OP HS 01/21/17 Losartan/Hydrochlorothiazide 1 each PO DAILY u2 01/21/17 [Losartan-Hctz 50-12.5 Mg Tab] - SOCIAL HX Smoking History: non-smoker Alcohol Use: none Drug Use: none - FAMILY HX Family History: No - VITAL SIGNS Vital Signs: Vital Signs Temp Pulse Resp BP Pulse Ox 97.9 F 65 16 205/75 96 02/11/18 12:37 02/11/18 12:37 02/11/18 12:37 02/11/18 12:37 02/11/18 12:37 - REVIEWED ASSESSMENTS Nursing Assessment Reviewed: Yes Vitals Reviewed: Yes Progress - Progress Progress: 1350 Patient resting comfortably, still symptoms free. Blood pressure 180/64 1400 Discussed with house mover helper at [facility] for transfer. Dr. Martinez, neurology will be contacted. [address] Martinez, neurologist, [place]. He recommended outpatient evaluation with MRI/MRA brain, Echocardiogram and US carotids. - EKG/XRAY/CT EKG: no ST T wave changes (Sinus Femi at 59 bpm) ED Results Lab/Radiology - Lab Results Lab Results: Lab Results 02/11/18 13:14 WBC 5.90 K/ul K/ul (4.00-12.00) RBC 4.12 M/ul M/ul (3.90-5.20) Hgb 12.3 g/dL g/dL (12.0-16.0) Hct 36.8 % % (34.5-46.5) MCV 89.0 fl fl (80.0-100.0) MCH 29.9 pg pg (28.0-34.0) MCHC 33.4 g/dL g/dL (30.0-36.0) RDW 16.3 % H % (11.3-14.3) Plt Count 286 K/mm3 K/mm3 (130-400) Neut % (Auto) 67.7 % % (39.0-79.0) Lymph % (Auto) 22.5 % % (16.0-50.0) Blanco % (Auto) 7.7 % % (0.0-11.0) Eos % (Auto) 1.8 % % (0.0-6.8) Baso % (Auto) 0.3 (0.0-1.5) Neut # (Auto) 4.0 # k/uL # k/uL (1.4-7.7) Lymph # (Auto) 1.3 # k/uL # k/uL (0.6-4.0) Blanco # (Auto) 0.5 # k/uL # k/uL (0.0-0.9) Eos # (Auto) 0.1 # k/uL # k/uL (0.0-0.6) Baso # (Auto) 0.0 # k/uL # k/uL (0.0-0.5) UA negative for infection. - Radiology Radiology Impressions: DIFFICULTY WITH SPEECH X 1 HOUR (DICOM Hx) TECHNIQUE: 5 mm contiguous axial images of the brain, noncontrast. FINDINGS: There is no evidence of intracranial mass effect, hemorrhage, or acute hydrocephalus. The lateral ventricles are symmetrical and the 4th ventricle is midline without shift. No acute brain parenchymal changes or extra-axial fluid collections are identified. The posterior fossa contents are within normal limits. There is hemispheric white matter disease compatible with chronic small vessel ischemic disease. The calvarium is intact. The visualized sinuses and mastoid air cells are clear. IMPRESSION: No acute intracranial process. Senescent changes Electronically signed on Feb 11, 2018 1:20:05 PM CDT by: Delta Felix - Orders Orders: ED Orders Category Date Time Status Place IV Lock 1T Care 02/11/18 12:[address] BRAIN W/O CONTRAST Stat Exams 02/11/18 Ordered CBC/PLATELET/DIFF Routine Lab 02/11/18 13:14 Completed CMP Routine Lab 02/11/18 13:00 Received NT-proBNP Stat Lab 02/11/18 13:13 Received UA W/MICRO IF INDICATED Routine Lab 02/11/18 Uncollected General Adult Physical Exam - PHYSICAL EXAM GENERAL APPEARANCE: no distress EENT: JADIEL NECK: supple RESPIRATORY: chest non-tender, breath sounds normal. No: wheezes CVS: reg rate & rhythm, heart sounds normal, no murmur ABDOMEN: soft, normal bowel sounds, non-tender RECTAL: deferred BACK: normal inspection, no CVA tenderness SKIN: warm/dry, normal color EXTREMITIES: non-tender NEURO: oriented X3, CN's nml as tested, motor nml, speech/cognition abnml, other (NIH Score = 0). No: facial droop Discharge Clincal Impression: TIA (transient ischemic attack) Referrals: Harshad Ramsay MD [Primary Care Provider] - 2 Days Additional Instructions: Follow up with Dr. Ramsay as soon as possible. Will need to order MRI/MRA brain, Echocardiogram, US carotids at [facility]. Follow up with Dr. Martinez, neurologist, at [facility] ([phone]) Condition: Stable Disposition: 01 HOME, SELF-CARE Decision to Admit: NO Date of Decison to Admit: 02/11/18 Decision Time: 14:19
[2018-02-11 13:37] LABS: eGFR (Non-African) > 60
--- NOTE | 2018-02-11 13:41 | Diagnostic Imaging Report ---
KOSTA HENRIQUEZ [facility] [address] [facility] [address] [place], [place]. [address] Report Submission Date: Feb 11, 2018 1:20:05 PM CDT Patient Study Name: VEE RICE Date: Feb 11, 2018 12:59:53 PM CDT Modality Type: CT\SR Gender: F Description: CT BRAIN W/O CONTRAST : [birth year] Institution: [facility] Physician: KOSTA HENRIQUEZ CT brain noncontrast CLINICAL HISTORY: DIFFICULTY WITH SPEECH X 1 HOUR (Hx) / ITS.REASON difficult with speech Note time : 02/11/2018 2:10:14 PM User : Janie Laird DIFFICULTY WITH SPEECH X 1 HOUR (DICOM Hx) TECHNIQUE: 5 mm contiguous axial images of the brain, noncontrast. FINDINGS: There is no evidence of intracranial mass effect, hemorrhage, or acute hydrocephalus. The lateral ventricles are symmetrical and the 4th ventricle is midline without shift. No acute brain parenchymal changes or extra-axial fluid collections are identified. The posterior fossa contents are within normal limits. There is hemispheric white matter disease compatible with chronic small vessel ischemic disease. The calvarium is intact. The visualized sinuses and mastoid air cells are clear. IMPRESSION: No acute intracranial process. Senescent changes Electronically signed on Feb 11, 2018 1:20:05 PM CDT by: Delta HARRIS
[2018-02-11 14:41] VITALS: BP 168/64
[2018-02-12 06:57] LABS: COLOR,URINE YELLOW (YELLOW)
[2018-02-12 06:58] LABS: OCCULT BLOOD,URINE TRACE-INTACT (NEGATIVE); PH URINE 5.5 (5.0 - 8.0); UROBILINOGEN URINE 0.2 Eu (0.2-1.0)
[2018-02-12 07:03] LABS: APPEARANCE,URINE CLEAR (CLEAR)
== END 2018-02-11 14:39 | disposition home or self-care (01) ==
LOC: ED 12:36
DX: G45.9 Transient cerebral ischemic attack, unspecified (principal)
CPT/HCPCS: 70450; 80053; 81002; 83880; 85025; 99285; S1016

== ENCOUNTER 2018-02-17 11:13 | Outpatient (CLI) | payer MEDICARE ==
--- NOTE | 2018-03-01 11:11 | OP Clinic Progress Note ---
PRIMARY CARE PROVIDER: Dr. Harshad Ramsay CHIEF COMPLAINT: "I had my third TIA last week." SIGNIFICANT PROBLEM LIST: 1. 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 Treated with clarithromycin/ethambutol/rifampin for 16 to 18 months. Recurrent positive CINTHYA cultures in April 2014 and October 2016, no further medical therapy at that time. Positive CINTHYA culture results in March 2017 and April 2017. Therapy with ethambutol/azithromycin/rifampin started on May 09, 2017. Therapy subsequently discontinued for the possibility of drug side effects on August 19, 2017. The patient's complaints were not related to the MAC therapy. Therapy was restarted on November 18, 2017. 2. Significant bronchiectasis. 3. Renal insufficiency. 4. Hypertension. 5. Carotid stenosis. 6. Transient ischemic attacks x3, last on February 11, 2018, on clopidogrel and aspirin. 7. Glaucoma. 8. Total abdominal hysterectomy. HISTORY OF PRESENT ILLNESS: This is an 87-year-old female who returns to clinic. Her main concern is the TIA that she suffered 1 week ago on February 11, 2018. She states that this is her 3rd TIA and that the manifestations are always the same in that it is difficult for her to find the proper words. She presented herself to [facility] Emergency Department and was concerned that she was only seen by a nurse practitioner and not a physician. A head CT was performed which showed no acute changes or bleeds. Patient was told that a neurologist from [place], Dr. Martinez's office, would be calling the patient to set up an appointment. Patient is concerned today because 1 week later, there has been no phone call from the neurologist's office. Regarding the MAC therapy, patient continues to have no side effects due to the medication. She denies nausea and vomiting, she denies any abdominal pain. Due to her recent TIA, she was unable to obtain a chest x-ray as had been ordered the last time I saw the patient. She does still complain of a cough but states that it has not changed in frequency and is still not using very much Robitussin DM to control her cough. ALLERGIES: Codeine: Skin rash. MEDICATIONS: 1. Metoprolol 25 mg daily. 2. Montelukast 10 mg daily. 3. Estropipate 0.75 mg daily. 4. Clopidogrel 75 mg daily. 5. Carvedilol 25 mg b.i.d. 6. Aspirin 325 mg daily. 7. Latanoprost eye drops at bedtime. 8. Robitussin DM p.r.n. cough. 9. Benadryl 25 mg p.r.n. 10. Ethambutol 1500 mg 3 times per week. 11. Azithromycin 500 mg 3 times per week. 12. Rifampin 600 mg 3 times per week. PHYSICAL EXAMINATION: GENERAL: This is a well-developed thin female in no acute distress speaking in full sentences. VITAL SIGNS: BP: 146/66, P: 64, R: 18, oxygen saturation 94% on room air. Height: 5 feet 3 inches. Weight: 140 pounds. HEENT: Pupils are equal and reactive to light. Oropharynx is clear. No thrush. No erythema. NECK: Supple. No lymphadenopathy. LUNGS: Good bilateral air excursion. Clear. No crackles or wheezes. CARDIAC: Rate and rhythm are regular. No murmur, rubs, or gallops. ABDOMEN: Soft and nontender. EXTREMITIES: No cyanosis, clubbing, or edema. NEUROLOGIC: Alert and oriented x3. Grossly nonfocal exam. IMAGING: All imaging independently reviewed by me personally. 1. Head CT on February 11, 2018. No acute changes. No bleeding. LABORATORIES: 1. CBC done on February 11, 2018. Hemoglobin 12, hematocrit 37, white blood cell count 5.9, platelets 286,000. 2. Chemistries on February 11, 2018. Sodium 136, potassium 4.2, chloride 99, bicarbonate 28, BUN 25, creatinine 1.0, glucose 105. ASSESSMENT: PROBLEM #1: Transient ischemic attack (TIA). This, per the patient, is her 3rd TIA and she is rightly concerned. She is also concerned that she has not been evaluated by a physician and is still waiting for the call from the neurologist from [facility]. PLAN: I instructed her that she needed to call the neurologist's office herself and set up an appointment as soon as she possibly can. I have given her Dr. Martinez's office number for her to contact. PROBLEM #2: Pulmonary Mycobacterium avium-intracellulare complex infection. Patient all along has tolerated her therapy for MAC. I have chosen to give it to her 3 times a week to minimize the possible side effects in a patient who is 87 years old and does not have a normal GFR. It is very difficult for me to say that her therapy has improved her MAC symptoms dramatically. We did have a discussion about that today. She is in agreement. I suggested that because she has the issue of the TIA, which is obviously extremely concerning to her, that I think at this particular point in time, it is gonzalez for us to stop the therapy for MAC while she pursues the workup via the neurologist at [facility]. Once that is complete and the patient feels comfortable, therapy with the MAC can be restarted depending on her desire. I also told the patient that I am leaving [facility] and that if she chooses to follow up with a general car supervisor yard to resume her MAC therapy, that I am recommending Dr. Jhaveri. PLAN: 1. Discontinue ethambutol, rifampin, and azithromycin. 2. Contact the office of Dr. Mikel Jhaveri as my recommendation for pulmonary follow up. Office number is [phone]. 3. I have given the patient my cell phone number and told her that she may call me at any time if she has any questions and that she may also have her daughter call me if she would prefer. cc: Dr. Harshad HARRIS
== END 2018-02-17 11:14 ==
LOC: PULMONARY 11:13
PROVIDERS: ATTEND Internal Medicine Pulmonary Disease
DX: Z53.8 Procedure and treatment not carried out for other reasons (principal)
CPT/HCPCS: 99212